=== PATIENT | female | born 1950 ===

== ENCOUNTER 2017-10-03 06:04 | Day surgery (SDC) | payer OTHER, SELFPAY ==
[~2017-10-03] VITALS: Ht 170.2 cm; Wt 81.3 kg
[~2017-10-03 06:04] MED LIST: ASPI81EC PO; CEPH500 PO; HYDACE7.5 PO; MULTIVITS; NITR100CA PO
[2017-10-03] MEDS ORDERED: GLIP10 PO (06:48)
[2017-10-03] MEDS ORDERED: METF500 PO (06:48)
[2017-10-03] MEDS ORDERED: LISI5 PO (06:49)
[2017-10-03] MEDS ORDERED: SITA100T2 PO (06:49)
[2017-10-03] MEDS ORDERED: HYDR1TAB94 (06:50)
== END 2017-10-03 12:00 | disposition home or self-care (01) ==
LOC: ORSCSDS 06:04
PROVIDERS: Orthopaedic Surgery
PROC: 0LS14ZZ Reposition Right Shoulder Tendon, Percutaneous Endoscopic Approach (ICD-10-PCS; principal; 2017-10-03 08:00)
PROC: 0RNJ4ZZ Release Right Shoulder Joint, Percutaneous Endoscopic Approach (ICD-10-PCS; principal; 2017-10-03 08:00)
PROC: 0LQ14ZZ Repair Right Shoulder Tendon, Percutaneous Endoscopic Approach (ICD-10-PCS; principal; 2017-10-03 08:00)
DX: M75.121 Complete rotator cuff tear or rupture of right shoulder, not specified as traumatic (principal); M75.41 Impingement syndrome of right shoulder; M75.21 Bicipital tendinitis, right shoulder; E11.9 Type 2 diabetes mellitus without complications; I10 Essential (primary) hypertension; Z87.891 Personal history of nicotine dependence; Z79.899 Other long term (current) drug therapy
CPT/HCPCS: 82947; C1713; J0171; J0690; J1100; J1885; J2250; J2405; J2710; J3010; J7120

== ENCOUNTER 2019-09-02 12:02 | Emergency (ER) | payer OTHER ==
[~2019-09-02] VITALS: Ht 170.2 cm; Wt 78.9 kg
[~2019-09-02 12:02] MED LIST changes: +GLIP10 PO; +HYDR1TAB94; +LISI5 PO; +METF500 PO; +SITA100T2 PO
[2019-09-02] MEDS ORDERED: Norco 5-325 Ta1 EACH PO (17:29)
== END 2019-09-02 18:00 | disposition home or self-care (01) ==
LOC: ER 12:02
DX: N75.1 Abscess of Bartholin's gland (principal); Z87.891 Personal history of nicotine dependence
CPT/HCPCS: 56420; 99282-25; A9270-GY

== ENCOUNTER 2019-09-05 07:20 | Emergency (ER) | payer OTHER ==
[~2019-09-05] VITALS: Ht 170.2 cm; Wt 78.9 kg
[~2019-09-05 07:20] MED LIST changes: +Norco 5-325 Ta1 EACH PO
== END 2019-09-05 08:26 | disposition home or self-care (01) ==
LOC: ER 07:20
DX: Z48.817 Encounter for surgical aftercare following surgery on the skin and subcutaneous tissue (principal); N76.4 Abscess of vulva; N76.2 Acute vulvitis; F17.219 Nicotine dependence, cigarettes, with unspecified nicotine-induced disorders
CPT/HCPCS: 99282

== ENCOUNTER → 2022-09-14 | Outpatient (CLI) | payer OTHER ==
[~2022-09-14] MED LIST changes: +ASPI81CH PO; +Chantix1 MG PO; +FURO40 PO; +HYDURE500 PO; +INSULANI SC; +Vibramycin100 MG PO
[2022-09-14 11:50] LABS: BASOPHILS ABSOLUTE AUTO 0.06 K/mm3 (0.00-0.23); BASOPHILS PERCENT AUTO 1 % (0-2); EOSINOPHILS ABSOLUTE AUTO 0.06 K/mm3 (0.00-0.68); EOSINOPHILS PERCENT AUTO 1 % (0-6); Hemoglobin 13.4 g/dL (11.5-16.0); IMMATURE GRAN ABSOLUTE AUTO 0.02 K/mm3 (0.00-0.10); IMMATURE GRAN PERCENT AUTO 0 % (0-1); LYMPHOCYTES ABSOLUTE AUTO 1.24 K/mm3 (0.84-5.20); LYMPHOCYTES PERCENT AUTO 17 % (21-46); MONOCYTES ABSOLUTE AUTO 0.46 K/mm3 (0.16-1.47); MONOCYTES PERCENT AUTO 6 % (4-13); Mean Platelet Volume 9.7 fL (9.1-12.4); NEUTROPHILS ABSOLUTE AUTO 5.37 K/mm3 (1.96-9.15); NEUTROPHILS PERCENT AUTO 75 % (41-73); Platelet Count 209 K/mm3 (150-400); White Blood Cell Count 7.21 K/mm3 (4.00-11.30)
[2022-09-14 11:55] LABS: Hematocrit 40.4 % (33.0-51.0); Mean Corpuscular HGB 31.5 pg (26.0-34.0); Mean Corpuscular HGB Conc 33.2 g/dL (31.5-36.5); Mean Corpuscular Volume 95 fL (80-100); Red Blood Cell Count 4.25 M/mm3 (3.80-5.20)
[2022-09-14 12:14] LABS: Percent Saturation 32.1 % (15.0-50.0)
[2022-09-14 12:47] LABS: International Normalized Ratio 1.04; Prothrombin Time Results 10.9 Sec (9.7-11.5)
[2022-09-14 12:49] LABS: Hemoglobin 13.4 g/dL (11.5-16.0); Mean Platelet Volume 10.2 fL (9.1-12.4); Platelet Count 218 K/mm3 (150-400); White Blood Cell Count 7.29 K/mm3 (4.00-11.30)
[2022-09-14 12:52] LABS: Hematocrit 41.1 % (33.0-51.0); Mean Corpuscular HGB 31.2 pg (26.0-34.0); Mean Corpuscular HGB Conc 32.6 g/dL (31.5-36.5); Mean Corpuscular Volume 96 fL (80-100); Red Blood Cell Count 4.29 M/mm3 (3.80-5.20)
[2022-09-14 13:00] LABS: Bun/Creatinine Ratio 26.8 (12.0-20.0); Calcium, Blood 9.1 mg/dL (8.5-10.1); Creatinine, Blood 0.75 mg/dL (0.40-1.00); Potassium, Blood 4.9 mmol/L (3.5-5.5)
[2022-09-14 13:21] LABS: BASOPHILS PERCENT MAN 0 % (0-2); EOSINOPHILS ABSOLUTE MAN 0.07 K/mm3 (0.00-0.68); EOSINOPHILS PERCENT MAN 1 % (0-6); LYMPHOCYTES ABSOLUTE MAN 0.94 K/mm3 (0.84-5.20); LYMPHOCYTES PERCENT MAN 13 % (21-46); MONOCYTES ABSOLUTE MAN 0.21 K/mm3 (0.16-1.47); MONOCYTES PERCENT MAN 3 % (4-13); NEUTROPHILS ABSOLUTE MAN 6.05 K/mm3 (1.96-9.15); SEG NEUTROPHILS PERCENT MAN 83 % (41-73); TOTAL CELLS COUNTED 100
== END | disposition home or self-care (01) ==
LOC: LAB 11:11 → LAB SHORT 11:11
PROVIDERS: Internal Medicine Hematology & Oncology; Physician Assistant
DX: I70.222 Atherosclerosis of native arteries of extremities with rest pain, left leg (principal); D45 Polycythemia vera; E55.9 Vitamin D deficiency, unspecified; I50.9 Heart failure, unspecified
CPT/HCPCS: 36415; 80048; 82306; 82728; 83540; 83550; 85007; 85025; 85027; 85610

== ENCOUNTER 2022-09-19 11:35 | Day surgery (SDC) | payer OTHER ==
[2022-09-19] MEDS ORDERED: AMOCLA875 PO (12:18)
[2022-09-19] MEDS ORDERED: METO25ER (12:36)
[2022-09-19] MEDS ORDERED: ROSU10TA (12:36)
[2022-09-19] MEDS ORDERED: ENTRESTO 24 MG1 EACH (12:38)
--- NOTE | 2022-09-19 17:22 | NUR ---
PT DRESSED, AMB TO BTR W HELP, R GROIN SITE STABLE, IV DC'D INTACT, DC'D BY SHELBI W DRIVING PT HOME
== END 2022-09-19 18:00 | disposition home or self-care (01) ==
LOC: MHTC 11:35
DX: E11.51 Type 2 diabetes mellitus with diabetic peripheral angiopathy without gangrene (principal); I70.222 Atherosclerosis of native arteries of extremities with rest pain, left leg; L97.429 Non-pressure chronic ulcer of left heel and midfoot with unspecified severity; F17.290 Nicotine dependence, other tobacco product, uncomplicated; Z79.899 Other long term (current) drug therapy; Z79.4 Long term (current) use of insulin
CPT/HCPCS: 76937; 82947; 99152; 99153; C1714; C1725; C1760; C1769; C1874; C1876; C1887; C1894; C2623; J1644; J2250; J3010; J7030; J7050; Q9967

== ENCOUNTER 2022-09-26 01:10 | Day surgery (SDC) | payer OTHER ==
[~2022-09-26 01:10] MED LIST changes: +AMOCLA875 PO; +ENTRESTO 24 MG1 EACH; +METO25ER; +ROSU10TA
== END 2022-09-26 22:47 | disposition home or self-care (01) ==
LOC: WOUND 01:10
DX: E11.621 Type 2 diabetes mellitus with foot ulcer (principal); L97.428 Non-pressure chronic ulcer of left heel and midfoot with other specified severity; L97.418 Non-pressure chronic ulcer of right heel and midfoot with other specified severity; L97.528 Non-pressure chronic ulcer of other part of left foot with other specified severity; L89.623 Pressure ulcer of left heel, stage 3; E11.42 Type 2 diabetes mellitus with diabetic polyneuropathy; E11.51 Type 2 diabetes mellitus with diabetic peripheral angiopathy without gangrene; I70.223 Atherosclerosis of native arteries of extremities with rest pain, bilateral legs; I87.2 Venous insufficiency (chronic) (peripheral); I11.0 Hypertensive heart disease with heart failure; I50.9 Heart failure, unspecified; F17.290 Nicotine dependence, other tobacco product, uncomplicated; Z79.4 Long term (current) use of insulin
CPT/HCPCS: G0463

== ENCOUNTER 2022-10-04 00:57 | Day surgery (SDC) | payer OTHER | END 2022-10-04 22:42 | disposition home or self-care (01) | LOC: WOUND 00:57 | DX: E11.621 Type 2 diabetes mellitus with foot ulcer (principal); L97.419 Non-pressure chronic ulcer of right heel and midfoot with unspecified severity; L97.429 Non-pressure chronic ulcer of left heel and midfoot with unspecified severity; E11.42 Type 2 diabetes mellitus with diabetic polyneuropathy; Z79.4 Long term (current) use of insulin; I70.223 Atherosclerosis of native arteries of extremities with rest pain, bilateral legs; E11.51 Type 2 diabetes mellitus with diabetic peripheral angiopathy without gangrene; Z87.891 Personal history of nicotine dependence | CPT/HCPCS: A9270; G0463 ==

== ENCOUNTER 2022-10-12 00:42 | Day surgery (SDC) | payer OTHER | END 2022-10-12 23:00 | disposition home or self-care (01) | LOC: WOUND 00:42 | DX: E11.621 Type 2 diabetes mellitus with foot ulcer (principal); L97.419 Non-pressure chronic ulcer of right heel and midfoot with unspecified severity; L97.422 Non-pressure chronic ulcer of left heel and midfoot with fat layer exposed; E11.42 Type 2 diabetes mellitus with diabetic polyneuropathy; Z79.4 Long term (current) use of insulin; I70.223 Atherosclerosis of native arteries of extremities with rest pain, bilateral legs; E11.51 Type 2 diabetes mellitus with diabetic peripheral angiopathy without gangrene; I87.2 Venous insufficiency (chronic) (peripheral); Z87.891 Personal history of nicotine dependence | CPT/HCPCS: G0463 ==

== ENCOUNTER 2022-10-18 01:47 | Day surgery (SDC) | payer OTHER ==
[~2022-10-18 01:47] MED LIST changes: -ENTRESTO 24 MG1 EACH; +ENTRESTO 24 MG1 EACH PO; -ROSU10TA; +ROSU10TA PO
== END 2022-10-18 22:35 | disposition home or self-care (01) ==
LOC: WOUND 01:47
DX: L89.623 Pressure ulcer of left heel, stage 3 (principal); E11.42 Type 2 diabetes mellitus with diabetic polyneuropathy; E11.621 Type 2 diabetes mellitus with foot ulcer; Z79.4 Long term (current) use of insulin; I70.223 Atherosclerosis of native arteries of extremities with rest pain, bilateral legs; I87.2 Venous insufficiency (chronic) (peripheral); E11.51 Type 2 diabetes mellitus with diabetic peripheral angiopathy without gangrene; Z87.891 Personal history of nicotine dependence
CPT/HCPCS: G0463

== ENCOUNTER 2022-10-19 08:55 | Day surgery (SDC) | payer OTHER ==
[~2022-10-19] VITALS: Ht 170.2 cm; Wt 63.6 kg
[2022-10-19 09:22] LABS: BASOPHILS ABSOLUTE AUTO 0.06 K/mm3 (0.00-0.23); BASOPHILS PERCENT AUTO 1 % (0-2); EOSINOPHILS ABSOLUTE AUTO 0.13 K/mm3 (0.00-0.68); EOSINOPHILS PERCENT AUTO 1 % (0-6); Hematocrit 39.4 % (33.0-51.0); IMMATURE GRAN ABSOLUTE AUTO 0.04 K/mm3 (0.00-0.10); IMMATURE GRAN PERCENT AUTO 0 % (0-1); LYMPHOCYTES ABSOLUTE AUTO 1.79 K/mm3 (0.84-5.20); LYMPHOCYTES PERCENT AUTO 15 % (21-46); MONOCYTES ABSOLUTE AUTO 1.07 K/mm3 (0.16-1.47); MONOCYTES PERCENT AUTO 9 % (4-13); Mean Corpuscular HGB 34.4 pg (26.0-34.0); Mean Corpuscular Volume 104 fL (80-100); NEUTROPHILS ABSOLUTE AUTO 8.91 K/mm3 (1.96-9.15); NEUTROPHILS PERCENT AUTO 74 % (41-73); Platelet Count 292 K/mm3 (150-400); RDW Coefficient Variation 15.7 % (11.7-14.2); RDW Standard Deviation 59.1 fL (35.1-46.3); Red Blood Cell Count 3.78 M/mm3 (3.80-5.20)
[2022-10-19 09:39] LABS: Albumin, Blood 3.2 g/dL (3.4-5.0); Albumin/Globulin Ratio 0.8 (0.8-1.8); Bilirubin, Total 0.7 mg/dL (0.1-1.0); Bun/Creatinine Ratio 21.2 (12.0-20.0); Calcium, Blood 8.8 mg/dL (8.5-10.1); Creatinine, Blood 0.66 mg/dL (0.40-1.00); Globulin, Blood 3.8 g/dL (2.2-4.0); Potassium, Blood 3.8 mmol/L (3.5-5.5)
[2022-10-19 09:40] LABS: International Normalized Ratio 1.05
--- NOTE | 2022-10-19 12:00 | NUR ---
Patient arrived to recovery room drowsy, but easily arousable. L groin site C/D/I, soft/nontender, no evidence of hematoma. R PT access C/D/I. VSS on room air
--- NOTE | 2022-10-19 13:30 | NUR ---
HOB elevated. L groin site C/D/I, soft/nontender. No evidence of hematoma. Pt tolerating PO intake well. VSS on room air
--- NOTE | 2022-10-19 14:00 | NUR ---
Groin site C/D/I, no evidence of hematoma. Patient tolerated PO intake well. Discharge instructions reviewed with patient. No new changes to medications. Patient informed to restart metformin in 2 days. Follow up appointment scheduled. VSS on room air.
--- NOTE | 2022-10-19 15:00 | NUR ---
Patient discahrged at this time. All patient belongings returned to patient. Discharge instructions given to patient. PIV removed without difficuluty, catheter intact. VSS on room air. Groin site C/D/I, no evidence of hematoma. Patient able to ambulate to wheelchair without dificulty.
== END 2022-10-19 15:00 | disposition home or self-care (01) ==
LOC: MHTC 08:55
PROVIDERS: Radiology Diagnostic Radiology
DX: E11.51 Type 2 diabetes mellitus with diabetic peripheral angiopathy without gangrene (principal); Z72.0 Tobacco use; I70.244 Atherosclerosis of native arteries of left leg with ulceration of heel and midfoot; L97.422 Non-pressure chronic ulcer of left heel and midfoot with fat layer exposed
CPT/HCPCS: 37224; 37228; 37232; 75716; 75774; 76937; 80053; 85025; 85610; 99152; 99153; C1725; C1760; C1769; C1887; C1894; J1644; J2250; J3010; J7030; J7040; J7042; J7050; Q9967

== ENCOUNTER 2022-10-25 02:41 | Day surgery (SDC) | payer OTHER | END 2022-10-25 22:46 | disposition home or self-care (01) | LOC: WOUND 02:41 | DX: E11.621 Type 2 diabetes mellitus with foot ulcer (principal); L97.522 Non-pressure chronic ulcer of other part of left foot with fat layer exposed; L97.428 Non-pressure chronic ulcer of left heel and midfoot with other specified severity; E11.42 Type 2 diabetes mellitus with diabetic polyneuropathy; I70.223 Atherosclerosis of native arteries of extremities with rest pain, bilateral legs; E11.51 Type 2 diabetes mellitus with diabetic peripheral angiopathy without gangrene; L89.623 Pressure ulcer of left heel, stage 3; I87.2 Venous insufficiency (chronic) (peripheral); I50.9 Heart failure, unspecified; Z87.891 Personal history of nicotine dependence; Z79.4 Long term (current) use of insulin | CPT/HCPCS: A9270; G0463 ==

== ENCOUNTER 2022-11-10 01:06 | Day surgery (SDC) | payer OTHER | END 2022-11-10 22:36 | disposition home or self-care (01) | LOC: WOUND 01:06 | DX: E11.621 Type 2 diabetes mellitus with foot ulcer (principal); L97.422 Non-pressure chronic ulcer of left heel and midfoot with fat layer exposed; L97.522 Non-pressure chronic ulcer of other part of left foot with fat layer exposed; L89.623 Pressure ulcer of left heel, stage 3; E11.42 Type 2 diabetes mellitus with diabetic polyneuropathy; Z79.4 Long term (current) use of insulin; I70.223 Atherosclerosis of native arteries of extremities with rest pain, bilateral legs; I87.2 Venous insufficiency (chronic) (peripheral); E11.51 Type 2 diabetes mellitus with diabetic peripheral angiopathy without gangrene; Z87.891 Personal history of nicotine dependence | CPT/HCPCS: 99406; A9270 ==

== ENCOUNTER 2022-11-16 02:36 | Day surgery (SDC) | payer OTHER | END 2022-11-16 23:28 | disposition home or self-care (01) | LOC: WOUND 02:36 | DX: L89.623 Pressure ulcer of left heel, stage 3 (principal); E11.621 Type 2 diabetes mellitus with foot ulcer; E11.42 Type 2 diabetes mellitus with diabetic polyneuropathy; E11.51 Type 2 diabetes mellitus with diabetic peripheral angiopathy without gangrene; I70.223 Atherosclerosis of native arteries of extremities with rest pain, bilateral legs; Z79.4 Long term (current) use of insulin; I87.2 Venous insufficiency (chronic) (peripheral); Z87.891 Personal history of nicotine dependence; I50.9 Heart failure, unspecified | CPT/HCPCS: 99406; A9270; G0463 ==

== ENCOUNTER 2022-12-13 07:11 | Inpatient (IN) | payer OTHER ==
[2022-12-13] VITALS (21 sets, daily range): BP systolic 120–180; BP diastolic 65–122
[~2022-12-13] VITALS: Ht 170.2 cm; Wt 65.7 kg
[~2022-12-13 07:11] MED LIST changes: +METO25ER PO
--- NOTE | 2022-12-13 09:15 | NUR ---
PATIENT ARRIVED TO RECOVERY ROOM CONVERSING APPROPRIATELY IN BED. R RADIAL TR BAND FULLY INFLATED. SITE C/D/I SOFT/NONTENDER, NO EVIDENCE OF HEMATOMA. GOOD PLEUTH WAVE. PATIENT DENYING ANY PAIN. VSS ON ROOM AIR.
--- NOTE | 2022-12-13 09:45 | NUR ---
PATIENT SITTING UP IN BED TOLERATING PO INTAKE WELL. R RADIAL SITE WITH TR BAND FULLY INFLATED. SITE C/D/I, SOFT/NONTENDER, NO EVIDENCE OF HEMATOMA. GOOD PLEUTH WAVE. PATIENT DENYING ANY PAIN. VSS ON ROOM AIR. SPOUSE PRESENT AT BEDSIDE.
--- NOTE | 2022-12-13 11:05 | NUR ---
2 CC OF AIR REMOVED FROM R RADIAL TR BAND. SITE C/D/I SOFT/NONTENDER, NO EVIDENCE OF HEMATOMA. GOOD PLEUTH WAVE. PATIENT DENYING ANY PAIN. VSS ON ROOM AIR. PATIENT RESTING COMFORTABLY IN BED.
--- NOTE | 2022-12-13 13:00 | NUR ---
ALL AIR REMOVED FROM R RADIAL TR BAND. SITE C/D/I SOFT/NONTENDER, NO EVIDENCE OF HEMATOMA. VSS ON ROOM AIR.
--- NOTE | 2022-12-13 13:25 | NUR ---
DR JESSICA IN ROOM DISCUSSING PLAN OF CARE.
--- NOTE | 2022-12-13 13:57 | NUR ---
CHEST X RAY PERFORMED
--- NOTE | 2022-12-13 14:00 | NUR ---
R RADIAL TR BAND REMOVED, CLOTH DOT APPLIED. SITE C/D/I SOFT/NONTENDER, NO EVIDENCE OF HEMATOMA. VSS ON ROOM AIR. PATIENT TRANSFERRED TO PCU 16, BEDSIDE REPORT GIVEN TO RN.
--- NOTE | 2022-12-13 18:02 | NUR ---
SHIFT SUMMARY; ADMIT FROM PBX INSPECTOR POST ANGIO. A/A/OX4 INDEPENDANT IN ROOM. RIGHT RADIAL SITE RECOVERED BY PBX INSPECTOR. FOAM DOT DRESSING IN PLACE WITH ARM BOARD. NO SWELLING, HEMATOMA OR REDNESS. RADIAL PULSE PALPABLE. VSS, WILL CONTINUE TO MONITOR AND TREAT UNTIL CHANGE OF SHIFT.
--- NOTE | 2022-12-13 20:58 | NUR ---
ASSUMPTION OF CARE THIS RN ASSUMED CARE OF PATIENT AT 1900. REPORT TAKEN FROM CHRISTIANNE RAMEY. PATIENT IS ALERT AND ORIENTED FULLY AND ABLE TO MAKE NEEDS KNOWN. VITALS STABLE. ON RA. REPORTS OCCASIONAL SOB AT TIMES DESPITE SPO2 >92% ON RA. NO OVERT SIGNS OF RESPIRATORY DISTRESS NOTED. RIGHT RADIAL SITE FULLY RECOVERED. CLOTH DOT DRESSING IN PLACE. ARMBOARD IN PLACE. NO SIGNS OF HEMATOMA, BLEEDING, SWELLING, TENDERNESS, OR DISCOLORATION. PULSES STRONG THROUGHOUT. PATIENT VERBALIZED UNDERSTANDNIG RESTRICTIONS FOR MOVEMENT AND USE OF RIGHT HAND/WRIST. INDEPENDENT WITH ADL'S. BED IN LOWEST POSITION AND CALL LIGHT WITHIN REACH.
[2022-12-14 03:25] VITALS: BP 140/86
--- NOTE | 2022-12-14 04:31 | NUR ---
SHIFT SUMMARY NO ACUTE CHANGES OVERNIGHT. PATIENT SLEPT SITTING UP IN BED DURING THE SHIFT WITH COMPLAINTS OF SOB AT TIMES, DESPITE SPO2 >94% ON RA. PATIENT OFFERED A RECLINER TO SLEEP IN, SHE DECLINED NEED. BP STABLE. SR ON MONITOR WITH BBB, HR 60-70'S. AFEBRILE. INDEPENDENT WITH ADL'S AND REPOSITIONING. BED IN LOWEST POSTIION AND CALL LIGHT WITHIN REACH. THIS RN WILL CONTINUE TO MONITOR UNTIL SHIFT CHANGE AT 0700.
[2022-12-14 05:37] LABS: Bun/Creatinine Ratio 25.1 (12.0-20.0); Calcium, Blood 8.6 mg/dL (8.5-10.1); Potassium, Blood 4.4 mmol/L (3.5-5.5)
[2022-12-14 08:45] VITALS: BP 143/87
[2022-12-14 11:50] VITALS: BP 127/62
[2022-12-14 16:14] VITALS: BP 122/68
--- NOTE | 2022-12-14 17:24 | NUR ---
ASSUMED CARE OF PT AT 0700 THIS AM. PT CONTINUES TO HAVE SOB WITH EXERTION. VSS. MEDICATIONS FURTHER ADJUSTED BY DR JESSICA THIS EVENING. SEE DOCUMENTED ASSESSMENT. NO ACUTE CHANGES T/O THE SHIFT. PT ABLE TO USE CALL LIGHT FOR NEEDS, CALL LIGHT INR EACH. WILL CONTINUE TO MONITOR AND GIVE REPORT TO NOC SHIFT RN.
[2022-12-14 19:37] VITALS: BP 115/55
[2022-12-14 23:44] VITALS: BP 119/61
[2022-12-15 04:20] VITALS: BP 113/56
[2022-12-15 04:34] LABS: Anion Gap 5 mmol/L (6-16); Blood Urea Nitrogen 29 mg/dL (8-24); Bun/Creatinine Ratio 25.7 (12.0-20.0); CO2, Blood 31 mmol/L (21-32); Calcium, Blood 8.5 mg/dL (8.5-10.1); Chloride, Blood 106 mmol/L (98-108); Cholesterol 185 mg/dL (50-200); Creatinine, Blood 1.13 mg/dL (0.40-1.00); Glomerular Filtration Rate 51 (60-); Glucose, Blood 88 mg/dL (70-99); HDL Cholesterol 37 mg/dL (>39); LDL/HDL RATIO 3.6; Low Density Lipoprotein Chol 132 mg/dL (0-110); Potassium, Blood 3.8 mmol/L (3.5-5.5); Sodium, Blood 142 mmol/L (136-145); Triglycerides 82 mg/dL (30-160); Very Low Density Lipoprot Chol 16 mg/dL (6-32)
--- NOTE | 2022-12-15 05:16 | NUR ---
SHIFT SUMMARY NO ACUTE CHANGES OVERNIGHT. BP STABLE. SB/SR WITH BBB NOTED WITH HR 50-60'S. DENIES CHEST PAIN/PRESSURE. ENDORSES SOB AND ORTHPONEA AT TIMES. PATIENT PLACED ON 2L VIA NC TO MAINTAIN SPO2 >92%. TITRATING AND REMOVING O2 NEEDED. AFEBRILE. PATIENT INDEPENDENT WITH ADL'S. ALERT AND ORIENTED FULLY AND ABLE TO MAKE NEEDS KNOWN. EKG DONE PER ORDER AT 0500 12/15. SEE FRONT OF CHART. BED IN LOWEST POSITION AND CALL LIGHT WITHIN REACH. THIS RN WILL CONTINUE TO MONITOR UNTIL SHIFT CHANGE AT 0700.
[2022-12-15 08:05] VITALS: BP 124/64
[2022-12-15 12:14] VITALS: BP 129/73
[2022-12-15 16:03] VITALS: BP 120/66
--- NOTE | 2022-12-15 18:54 | NUR ---
SHIFT NOTE. PT MET W DR JESSICA AND IT WAS DETERMINED PT WILL ATTEMPT TO TX TO ANOTHER FACILITY FOR FURTHER CARDIOLOGY CONSULTATION. PT IS A/O ON 2 L O2 N/C, HAS REMAINED WITH GOOD MOOD AND COOPERATIVE T/O SHIFT. CALL LIGHT WITHIN REACH, WILL CONT TO MONITOR AND GIVE BEDSIDE REPORT TO NOC RN.
[2022-12-15 19:22] VITALS: BP 116/61
[2022-12-15 23:38] VITALS: BP 132/69
[2022-12-16 03:59] VITALS: BP 136/69
--- NOTE | 2022-12-16 06:21 | NUR ---
SHIFT SUMMARY NO ACUTE CHANGES OVERNIGHT. PATIENT DENIES CHEST PAIN/PRESSURE. ENSORSES DYSPNEA WITH EXERTION AND OCCASIONAL ORTHOPNEA. ON 2L VIA NC WHILE SLEEPING AND LYING FLAT. BP STABLE. SB/SR WITH PVC'S, HR 50-60'S. AFEBRILE. SPO2 >92% WHILE AWAKE AND ON RA AND WHILE LYING FLAT WITH 2L OF O2. ALERT AND ORIENTED FULLY. ABLE TO MAKE NEEDS KNOWN. INDEPENDENT WITH ADL'S. BED IN LOWEST POSITION AND CALL LIGHT WITHIN REACH. THIS RN WILL CONTINUE TO MONITOR UNTIL SHIFT CHANGE AT 0700.
[2022-12-16 08:33] VITALS: BP 129/59
[2022-12-16 11:36] VITALS: BP 127/72
[2022-12-16 15:47] VITALS: BP 149/74
--- NOTE | 2022-12-16 19:00 | NUR ---
End of shift note. Pt had a good day, waiting for possible transfer to [facility] tomorrow 12/17/22. Vitals stable all shift. Some complaints of SOB, using supplemental O2 for comfort. Pt is independent in the room. Pt is able to make needs known, call light is within reach.
[2022-12-16 21:01] VITALS: BP 129/64
[2022-12-17 00:16] VITALS: BP 140/73
[2022-12-17 03:39] VITALS: BP 127/60
[2022-12-17 04:04] LABS: BASOPHILS PERCENT AUTO 1 % (0-2); EOSINOPHILS ABSOLUTE AUTO 0.24 K/mm3 (0.00-0.68); EOSINOPHILS PERCENT AUTO 2 % (0-6); Hematocrit 38.3 % (33.0-51.0); Hemoglobin 11.9 g/dL (11.5-16.0); IMMATURE GRAN ABSOLUTE AUTO 0.09 K/mm3 (0.00-0.10); IMMATURE GRAN PERCENT AUTO 1 % (0-1); LYMPHOCYTES ABSOLUTE AUTO 2.68 K/mm3 (0.84-5.20); LYMPHOCYTES PERCENT AUTO 19 % (21-46); MONOCYTES ABSOLUTE AUTO 1.12 K/mm3 (0.16-1.47); MONOCYTES PERCENT AUTO 8 % (4-13); Mean Corpuscular HGB Conc 31.1 g/dL (31.5-36.5); Mean Corpuscular Volume 97 fL (80-100); Mean Platelet Volume 10.7 fL (9.1-12.4); NEUTROPHILS ABSOLUTE AUTO 10.18 K/mm3 (1.96-9.15); NEUTROPHILS PERCENT AUTO 71 % (41-73); Platelet Count 443 K/mm3 (150-400); RDW Coefficient Variation 14.1 % (11.7-14.2); RDW Standard Deviation 49.8 fL (35.1-46.3); Red Blood Cell Count 3.97 M/mm3 (3.80-5.20); White Blood Cell Count 14.41 K/mm3 (4.00-11.30)
[2022-12-17 04:24] LABS: Bun/Creatinine Ratio 25.8 (12.0-20.0); Calcium, Blood 8.7 mg/dL (8.5-10.1); Creatinine, Blood 1.24 mg/dL (0.40-1.00); Potassium, Blood 3.5 mmol/L (3.5-5.5)
--- NOTE | 2022-12-17 06:52 | NUR ---
SHIFT SUMMARY: A&OX4. NO COMPLAINTS OF SOB OR CHEST PAIN THROUGHOUT SHIFT. PT INDEPENDENT IN ROOM WITH STEADY GAIT AND POSTURE ERECT. REPORTS VOIDING WITHTOUT DIFFICULTY. NO ACUTE CHANGES NOTED DURING THIS SHIFT. CALL LIGHT IN REACH.
[2022-12-17 07:42] VITALS: BP 126/68
[2022-12-17 11:21] VITALS: BP 140/79
[2022-12-17 12:05] VITALS: BP 140/79
--- NOTE | 2022-12-17 13:01 | NUR ---
PT LEFT WITH EMS, ALL BELONGINGS WITH PT. CALLED REPORT TO GLADYS RAMEY AT [facility].
== END 2022-12-17 12:47 | disposition short-term general hospital (02) | DRG 287 ==
LOC: MHTC 07:11 → PCU 07:11 → MHTC 07:12 → PCU 14:10 → MHTC 12-14 20:00 → PCU 12-15 09:52
PROVIDERS: Internal Medicine Cardiovascular Disease; ADMIT Internal Medicine
PROC: 4A023N7 Measurement of Cardiac Sampling and Pressure, Left Heart, Percutaneous Approach (ICD-10-PCS; principal; 2022-12-13)
PROC: B24BZZ3 Ultrasonography of Heart with Aorta, Intravascular (ICD-10-PCS; 2022-12-13)
PROC: B2111ZZ Fluoroscopy of Multiple Coronary Arteries using Low Osmolar Contrast (ICD-10-PCS; 2022-12-13)
DX: I50.43 Acute on chronic combined systolic (congestive) and diastolic (congestive) heart failure (principal); I25.5 Ischemic cardiomyopathy; E78.5 Hyperlipidemia, unspecified; I25.10 Atherosclerotic heart disease of native coronary artery without angina pectoris; M19.90 Unspecified osteoarthritis, unspecified site; E66.9 Obesity, unspecified; Z96.619 Presence of unspecified artificial shoulder joint; D75.1 Secondary polycythemia; F41.9 Anxiety disorder, unspecified; E11.51 Type 2 diabetes mellitus with diabetic peripheral angiopathy without gangrene; Z68.23 Body mass index [BMI] 23.0-23.9, adult; Z95.5 Presence of coronary angioplasty implant and graft; Z90.710 Acquired absence of both cervix and uterus; Z87.891 Personal history of nicotine dependence; Z98.890 Other specified postprocedural states; Z88.8 Allergy status to other drugs, medicaments and biological substances; Z79.4 Long term (current) use of insulin; Z79.899 Other long term (current) drug therapy
CPT/HCPCS: 36415; 71045; 76937; 80048; 80061; 82947; 83036; 84484; 85025; 93005; 93010; 93458; 94760; 99152; 99153; A9270; C1769; C1887; C1894; C8929; J1644; J1815; J2250; J3010; J7030; J7050; Q9957; Q9967

== ENCOUNTER 2023-03-09 19:08 | Emergency (ER) | payer OTHER ==
[~2023-03-09] VITALS: Ht 170.2 cm; Wt 68.0 kg
[2023-03-09 19:45] LABS: BASOPHILS ABSOLUTE AUTO 0.09 K/mm3 (0.00-0.23); BASOPHILS PERCENT AUTO 1 % (0-2); EOSINOPHILS ABSOLUTE AUTO 0.14 K/mm3 (0.00-0.68); EOSINOPHILS PERCENT AUTO 1 % (0-6); Hematocrit 53.2 % (33.0-51.0); Hemoglobin 16.8 g/dL (11.5-16.0); IMMATURE GRAN ABSOLUTE AUTO 0.07 K/mm3 (0.00-0.10); IMMATURE GRAN PERCENT AUTO 0 % (0-1); LYMPHOCYTES ABSOLUTE AUTO 1.73 K/mm3 (0.84-5.20); LYMPHOCYTES PERCENT AUTO 10 % (21-46); MONOCYTES ABSOLUTE AUTO 1.29 K/mm3 (0.16-1.47); MONOCYTES PERCENT AUTO 8 % (4-13); Mean Corpuscular HGB 25.9 pg (26.0-34.0); Mean Corpuscular HGB Conc 31.6 g/dL (31.5-36.5); Mean Corpuscular Volume 82 fL (80-100); Mean Platelet Volume 11.6 fL (9.1-12.4); NEUTROPHILS ABSOLUTE AUTO 13.29 K/mm3 (1.96-9.15); NEUTROPHILS PERCENT AUTO 80 % (41-73); Platelet Count 323 K/mm3 (150-400); RDW Coefficient Variation 17.6 % (11.7-14.2); RDW Standard Deviation 49.3 fL (35.1-46.3); Red Blood Cell Count 6.49 M/mm3 (3.80-5.20); White Blood Cell Count 16.61 K/mm3 (4.00-11.30)
[2023-03-09 19:54] LABS: Albumin/Globulin Ratio 0.7 (0.8-1.8); Bilirubin, Total 0.7 mg/dL (0.1-1.0); Creatinine, Blood 1.37 mg/dL (0.40-1.00); Globulin, Blood 4.5 g/dL (2.2-4.0); Potassium, Blood 5.6 mmol/L (3.5-5.5); Total Protein, Blood 7.5 g/dL (6.4-8.2)
[2023-03-09 20:30] LABS: Source, Urine Straight Cath
[2023-03-09 20:38] LABS: Appearance, Urine Hazy (Clear); Bilirubin, Urine Neg (Neg); Blood, Urine Neg (Neg); Glucose Qualitative, Urine 4+ (Neg); Ketones, Urine Neg (Neg); Leukocyte Esterase, Urine 3+ (Neg); Nitrite, Urine Neg (Neg); Protein, Urine Neg (Neg); Urobilinogen, Urine NORM (Normal)
[2023-03-09 20:43] LABS: Color, Urine Pale Yellow (P-Yellow)
[2023-03-09 20:46] LABS: Bacteria Many /hpf; Renal Epithelial Rare /hpf (0-Rare); Squamous Epithelial Cells Few /hpf (Few); White Blood Cells, Urine 25-50 /hpf (0-5); Yeast/Fungi Urine Rare /hpf
[2023-03-09] MEDS ORDERED: CEFP200 PO (21:14)
[2023-03-09 21:30] VITALS: BP 152/75
== END 2023-03-09 21:42 | disposition home or self-care (01) ==
LOC: ER 19:08
PROVIDERS: Emergency Medicine; Student in an Organized Health Care Education/Training Program
DX: S80.02XA Contusion of left knee, initial encounter (principal); N39.0 Urinary tract infection, site not specified; R53.1 Weakness; W19.XXXA Unspecified fall, initial encounter; Z88.8 Allergy status to other drugs, medicaments and biological substances; Z79.4 Long term (current) use of insulin; Z79.899 Other long term (current) drug therapy; E11.9 Type 2 diabetes mellitus without complications; Z87.891 Personal history of nicotine dependence
CPT/HCPCS: 51701; 70450; 73562-LT; 80053; 81001; 85025; 87077; 87086; 87186; 93005; 93010; 96365; 99285-25; A9270; J0696

== ENCOUNTER 2023-05-12 10:15 | Inpatient (IN) | payer OTHER ==
[~2023-05-12] VITALS: Ht 170.2 cm; Wt 64.4 kg
[~2023-05-12 10:15] MED LIST changes: +CEFP200 PO; +FURO20 PO; -FURO40 PO
[2023-05-12 11:14] LABS: BASOPHILS ABSOLUTE AUTO 0.12 K/mm3 (0.00-0.23); BASOPHILS PERCENT AUTO 1 % (0-2); EOSINOPHILS ABSOLUTE AUTO 0.18 K/mm3 (0.00-0.68); EOSINOPHILS PERCENT AUTO 1 % (0-6); Hemoglobin 18.6 g/dL (11.5-16.0); IMMATURE GRAN ABSOLUTE AUTO 0.06 K/mm3 (0.00-0.10); IMMATURE GRAN PERCENT AUTO 0 % (0-1); LYMPHOCYTES ABSOLUTE AUTO 1.97 K/mm3 (0.84-5.20); LYMPHOCYTES PERCENT AUTO 14 % (21-46); MONOCYTES ABSOLUTE AUTO 0.84 K/mm3 (0.16-1.47); MONOCYTES PERCENT AUTO 6 % (4-13); Mean Corpuscular HGB 25.1 pg (26.0-34.0); Mean Corpuscular HGB Conc 30.2 g/dL (31.5-36.5); Mean Corpuscular Volume 83 fL (80-100); NEUTROPHILS ABSOLUTE AUTO 11.05 K/mm3 (1.96-9.15); NEUTROPHILS PERCENT AUTO 78 % (41-73); Platelet Count 216 K/mm3 (150-400); RDW Coefficient Variation 20.5 % (11.7-14.2); RDW Standard Deviation 55.9 fL (35.1-46.3); Red Blood Cell Count 7.42 M/mm3 (3.80-5.20); White Blood Cell Count 14.22 K/mm3 (4.00-11.30)
[2023-05-12 11:16] LABS: Hematocrit 61.5 % (33.0-51.0)
[2023-05-12 11:38] LABS: Albumin, Blood 3.5 g/dL (3.4-5.0); Albumin/Globulin Ratio 0.7 (0.8-1.8); Bilirubin, Total 0.5 mg/dL (0.1-1.0); Bun/Creatinine Ratio 27.9 (12.0-20.0); Calcium, Blood 9.2 mg/dL (8.5-10.1); Creatinine, Blood 2.58 mg/dL (0.40-1.00); Globulin, Blood 4.7 g/dL (2.2-4.0); Magnesium, Blood 2.8 mg/dL (1.6-2.4); Potassium, Blood 4.6 mmol/L (3.5-5.5); Total Protein, Blood 8.2 g/dL (6.4-8.2)
[2023-05-12 15:08] LABS: Source, Urine Clean Catch
[2023-05-12 15:52] LABS: Bilirubin, Urine Neg (Neg); Blood, Urine 3+ (Neg); Glucose Qualitative, Urine 4+ (Neg); Ketones, Urine Neg (Neg); Leukocyte Esterase, Urine 3+ (Neg); Nitrite, Urine Neg (Neg); Protein, Urine 3+ (Neg); Urobilinogen, Urine NORM (Normal)
[2023-05-12 16:44] LABS: Appearance, Urine Turbid (Clear); Color, Urine Yellow (P-Yellow)
[2023-05-12 16:45] LABS: Bacteria Many /hpf; Mucus Light (0-Heavy); Red Blood Cells, Urine 0-2 /hpf (0-2); Squamous Epithelial Cells Few /hpf (Few); White Blood Cells, Urine TNTC /hpf (0-5)
[2023-05-12 18:08] VITALS: BP 154/80
[2023-05-12 19:38] VITALS: BP 168/73
--- NOTE | 2023-05-12 19:56 | NUR ---
ADMISSION AND SHIFT SUMMARY PATIENT ADMITTED FROM THE ED AT 1800. PATIENT IRRITABLE OF ADMISSION. FAMILY AT BEDSIDE. SON REPORTED OUTSIDE THE ROOM THAT HE FEELS THAT SHE MAY HAVE SOME DEMENTIA. PATIENT HAS NOT SHOWERED FOR 2 MONTHS AND IS RESISTANT WITH PERSONAL CARE. PATIENT UNABLE TO GIVE MEDICATION HX. FAMILY TO RETRIEVE MEDICATIONS FOR REVIEW. US DONE WHILE ADMISSION PROCESS COMPLETED. PATIENT COMPLAINING OF L AC IV PAINFUL WITH ANY MOVEMENT.
[2023-05-12] MEDS ORDERED: SPIRONOLACTONE25 MG PO (21:13)
[2023-05-12] MEDS ORDERED: ROSUVASTATIN CA40 MG PO (21:14)
[2023-05-12] MEDS ORDERED: JARDIANCE25 MG PO (21:14)
[2023-05-12] MEDS ORDERED: PLAVIX75 MG PO (21:15)
[2023-05-12] MEDS ORDERED: LISI5 PO (21:16)
[2023-05-12] MEDS ORDERED: SEMGLEE (Y100 UNIT/2 SC (21:16)
[2023-05-12] MEDS ORDERED: CARVEDILOL6.25 MG PO (21:19)
[2023-05-13 03:34] VITALS: BP 126/64
--- NOTE | 2023-05-13 04:22 | NUR ---
SHIFT SUMMARY NOC PT A/O X 4. PLEASANT AND COOPERATIVE WITH CARE. PT ON TELE RUNNING SINUS RHYTHM @ 65 BPM. NS INFUSING @ 100 ML/HR. PT INDEPENDENT IN ROOM/CONTINENT. PT EVENING CBG WAS 285 AND NO HS COVERAGE SHORT ACTING INDICATED. 10 UNITS LONG ACTING INSULING GIVEN. ACCORDING TO PT FAMILY, PT HAS NOT BATHED IN A FEW WEEKS, PT WAS ASKED IF THEY WOULD LIKE TO SHOWER OR IF THEY NEEDED ASSISTENCE, AND PT REFUSED. PT ALSO REPORTED THAT THEIR PROVIDER AT [facility] TOLD HER NOT TO TAKE HER COREG ANYMORE, MORE CLARIFICATION IS NEEDED TO ADDRESS THIS DURING DAY. PT IS CURRENTLY RESTING WITH BED IN LOWEST POSITION, AND CALL LIGHT WITHIN REACH.
[2023-05-13 05:08] LABS: Bun/Creatinine Ratio 26.5 (12.0-20.0); Calcium, Blood 8.5 mg/dL (8.5-10.1); Creatinine, Blood 2.49 mg/dL (0.40-1.00); Potassium, Blood 4.6 mmol/L (3.5-5.5); Thyroid Stimulating Hormone 0.456 uIU/mL (0.360-4.800); Uric Acid, Blood 7.6 mg/dL (2.6-6.0)
[2023-05-13 07:47] VITALS: BP 127/62
[2023-05-13 15:08] VITALS: BP 165/75
--- NOTE | 2023-05-13 16:45 | NUR ---
[facility] FORMED SIGNED BY PATIENT, FAXED TO [facility], AND COPY PLACED IN PT CHART. ORIGINAL GIVEN BACK TO PATIENT.
[2023-05-13 16:59] VITALS: BP 179/73
--- NOTE | 2023-05-13 19:09 | NUR ---
SHIFT SUMMARY: HYPERTENSIVE THIS AFTERNOON, 165/75, HAD JUST GIVEN 1400 DOSE OF HYDRALAZINE. RE-CHECKED BP AT 1700, WAS 179/78; GAVE PRN HYDRALAZINE. PT ASYMPTOMATIC. NO EVENTS ON TELEMETRY, SR BBB 1ST DEGREE HB WITH RATE 50-70'S. CBG AT 1630 WAS 156; REFUSED SS INSULIN FOR FEAR OF HYPOGLYCEMIA WHILE ASLEEP. NS INFUSING AT 150 ML/HR. CONFUSED AT TIMES.
[2023-05-13 19:30] VITALS: BP 175/73
--- NOTE | 2023-05-13 21:36 | NUR ---
PT BLADDER SCANNED POST VOID 496 ML. PT REFUSED STRAIGHT CATHETERIZATION AT THIS TIME. SUPERINTENDENT AUTOMOTIVE NOTIFIED.
--- NOTE | 2023-05-13 21:38 | NUR ---
PT BLADDER SCANNED POST VOID 678 ML RESIDUAL. PT AGAIN REFUSING STRAIGHT CATHETERIZATION. LEAD RADIOLOGIC TECHNOLOGIST NOTIFIED.
[2023-05-14 01:52] VITALS: BP 155/77
--- NOTE | 2023-05-14 02:52 | NUR ---
PT BLADDER SCANNED POST VOID WIT RESIDUAL 657 ML. PT STILL REFUSING STRAIGHT CATHETERIZATION. CHARGE NURSE NOTIFIED.
--- NOTE | 2023-05-14 04:46 | NUR ---
SHIFT SUMMARY NOC PT A/O X 2-3. PLEASANT AND COOPERATIVE WITH CARE. PT BLADDER SCANNED POST VOID WITH 496 ML/ 678 ML, BUT PT IS REFUSING STRAIGHT CATHETERIZATION, DUE TO PAST PAINFUL EXPERIENCE WHILE IN HOSPITAL. CHARGE NURSE NOTIFIED OF PT REFUSALS. PT HAS NS @ 150 ML/HR INFUSING TO IMPROVE KIDNEY FUNCTION. PT ON TELE RUNNING NSR @ 71 BPM. HS CBG 157 REQUIRING 1 UNIT R INSULIN, 15 UNITS LONG ACTING SCHEDULED. PT BP ELEVATED AND SCHEDULED HYDRALAZINE GIVEN WHICH DECREASED BP. PT IS CURRENTLY RESTING WITH BED IN LOWEST POSITION, AND CALL LIGHT WITHIN REACH.
[2023-05-14 04:59] LABS: BASOPHILS ABSOLUTE AUTO 0.11 K/mm3 (0.00-0.23); BASOPHILS PERCENT AUTO 1 % (0-2); EOSINOPHILS ABSOLUTE AUTO 0.18 K/mm3 (0.00-0.68); EOSINOPHILS PERCENT AUTO 1 % (0-6); Hemoglobin 17.5 g/dL (11.5-16.0); IMMATURE GRAN ABSOLUTE AUTO 0.05 K/mm3 (0.00-0.10); IMMATURE GRAN PERCENT AUTO 0 % (0-1); LYMPHOCYTES ABSOLUTE AUTO 1.42 K/mm3 (0.84-5.20); LYMPHOCYTES PERCENT AUTO 10 % (21-46); MONOCYTES ABSOLUTE AUTO 0.74 K/mm3 (0.16-1.47); MONOCYTES PERCENT AUTO 5 % (4-13); Mean Corpuscular HGB 25.2 pg (26.0-34.0); Mean Corpuscular HGB Conc 30.5 g/dL (31.5-36.5); Mean Corpuscular Volume 83 fL (80-100); NEUTROPHILS ABSOLUTE AUTO 12.17 K/mm3 (1.96-9.15); NEUTROPHILS PERCENT AUTO 83 % (41-73); Platelet Count 205 K/mm3 (150-400); RDW Coefficient Variation 20.2 % (11.7-14.2); RDW Standard Deviation 56.4 fL (35.1-46.3); Red Blood Cell Count 6.94 M/mm3 (3.80-5.20); White Blood Cell Count 14.67 K/mm3 (4.00-11.30)
[2023-05-14 05:00] LABS: Hematocrit 57.3 % (33.0-51.0); Mean Platelet Volume 10.8 fL (9.1-12.4)
[2023-05-14 05:55] LABS: Bun/Creatinine Ratio 25.1 (12.0-20.0); Calcium, Blood 8.8 mg/dL (8.5-10.1); Creatinine, Blood 1.99 mg/dL (0.40-1.00); Potassium, Blood 4.5 mmol/L (3.5-5.5)
[2023-05-14 07:38] VITALS: BP 152/75
[2023-05-14 15:19] VITALS: BP 161/75
--- NOTE | 2023-05-14 18:42 | NUR ---
AT 1630 BLADDER SCAN SHOWED 446 ML POST VOID RESIDUAL. EDUATED PATIENT ABOUT PROCEDURE FOR STRAIGHT CATH, USE OF LIDOCAINE TO HELP WITH PAIN, AND POSSIBLE CAUSES OF URINARY RETENTION; SHE AGREED TO PROCEED WITH ONLY FEMALE STAFF PRESENT. CLEANED VULVA WITH CLEANSING WIPES, THEN BETADINE. PREPARED STERILE FIELD, APPLIED LIDOCAINE TOPICALLY TO URETHRA AND CATHETER. VISUALIZED URETHRAL OPENING AND ATTEMPTED TO INTRODUCE 14 FR CATHETER BUT ENCOUNTERED RESISTANCE JUST INSIDE THE OPENING, UNABLE TO ADVANCE. PT UNABLE TO TOLERATE THIS PROCEDURE FURTHER. MAY NEED FURTHER EVALUATION BY UROLOGIST?
--- NOTE | 2023-05-14 18:49 | NUR ---
SHIFT SUMMARY: NO ACUTE EVENTS. NO EVENTS ON TELEMETRY, SR 60-70'S, BBB, 1ST DEGREE HB. DENIED PAIN. PT HAD IVF INFUSING AT 150 ML/HR; THIS AFTERNOON SHE STATED SHE DIDN'T FEEL WELL AND WAS NOTED TO BE SLIGHTLY DYSPNEIC ON EXERTION. LUNGS SOUNDS WERE CLEAR, BUT PT STATED THAT SHE THOUGHT SHE "WAS GETTING TOO MUCH WATER." AFTER SPEAKING TO DR. SORIANO, IVF RATE DECREASED TO 50 ML/HR. BLADDER SCAN THIS EVENING WAS > 400 ML; SEE NOTE ABOUT STRAIGHT CATH ATTEMPT. APPETITE GOOD. UP INDEPENDENTLY IN ROOM.
[2023-05-14 20:04] VITALS: BP 181/79
[2023-05-14 21:58] VITALS: BP 194/82
[2023-05-14 23:07] VITALS: BP 168/77
[2023-05-15 00:36] VITALS: BP 175/89
[2023-05-15 02:07] VITALS: BP 130/65
--- NOTE | 2023-05-15 05:31 | NUR ---
SHIFT SUMMARY NOC PT A/O X 3. PLEASANT AND COOPERATIVE WITH CARE. PT STILL HAVING ELEVATED BP EVEN AFTER RECEIVING BEDTIME HYDRALAZINE. HOSPITALIST NOTIFIED AND NEW ORDER FOR AMLODAPINE 5 MG ADMINSTERED WHICH LOWERED BP BY 30 SYSTOLIC. PT HAS ORDERS FOR BLADDER SCAN Q8H POST VOID. DAY RN WAS UNABLE TO ADVANCE STRAIGHT CATH DUE TO POSSIBLE OBSTRUCTION. UROLOGY CONSULT PROBABLY NEEDED TO DETERMINE CAUSE OF RESISTENCE. PT HAS NS INFUSING @ 50 ML/HR TO IMPROVE KIDNEY FUNCTION. PT ON TELE RUNNING SINUS RHYTHM 1DHB @ 62 BPM. PT IS CURRENTLY RESTING WITH BED IN LOWEST POSITION, AND CALL LIGHT WITHIN REACH.
[2023-05-15 06:09] LABS: BASOPHILS ABSOLUTE AUTO 0.11 K/mm3 (0.00-0.23); BASOPHILS PERCENT AUTO 1 % (0-2); EOSINOPHILS ABSOLUTE AUTO 0.19 K/mm3 (0.00-0.68); EOSINOPHILS PERCENT AUTO 2 % (0-6); Hemoglobin 16.8 g/dL (11.5-16.0); IMMATURE GRAN ABSOLUTE AUTO 0.05 K/mm3 (0.00-0.10); IMMATURE GRAN PERCENT AUTO 0 % (0-1); LYMPHOCYTES ABSOLUTE AUTO 1.85 K/mm3 (0.84-5.20); LYMPHOCYTES PERCENT AUTO 14 % (21-46); MONOCYTES ABSOLUTE AUTO 0.74 K/mm3 (0.16-1.47); MONOCYTES PERCENT AUTO 6 % (4-13); Mean Corpuscular HGB 25.1 pg (26.0-34.0); Mean Corpuscular HGB Conc 30.4 g/dL (31.5-36.5); Mean Corpuscular Volume 83 fL (80-100); NEUTROPHILS ABSOLUTE AUTO 10.09 K/mm3 (1.96-9.15); NEUTROPHILS PERCENT AUTO 77 % (41-73); Platelet Count 195 K/mm3 (150-400); RDW Coefficient Variation 20.4 % (11.7-14.2); RDW Standard Deviation 56.6 fL (35.1-46.3); Red Blood Cell Count 6.69 M/mm3 (3.80-5.20); White Blood Cell Count 13.03 K/mm3 (4.00-11.30)
[2023-05-15 06:12] LABS: Hematocrit 55.3 % (33.0-51.0)
[2023-05-15 06:27] LABS: Bun/Creatinine Ratio 21.7 (12.0-20.0); Calcium, Blood 8.6 mg/dL (8.5-10.1); Creatinine, Blood 1.66 mg/dL (0.40-1.00); Potassium, Blood 4.2 mmol/L (3.5-5.5)
[2023-05-15 07:49] VITALS: BP 128/68
[2023-05-15 16:03] VITALS: BP 142/77
--- NOTE | 2023-05-15 17:21 | NUR ---
PT AOX4 AND ABLE TO MAKE NEEDS KNOWN. PT STARTED AM VERY AGITATED AND UPSET. MULTIPLE CARE STAFF ATTEMPTED TO HELP HER AND FIX HER FRUSTRATION. EXTRA FOOD REQUESTED PT WAS UPSET THAT NOT ENOUGH FOOD HAD BEEN ORDERED. PT WAS TALKED WITH BY THIS FARMWORKER MACHINE WHEN SHE TOLD STUDENT NURSE HOW UPSET SHE WAS AND HOW SHE THOUGHT SHE WAS NOT BEING TREATED WELL. PT DID SEEM TO SETTLE DOWN AND HAS BEEN GOOD TO WORK WITH SINCE. PT CONTINUES TO RETAIN URING AND WAS AT 596MLS WHEN BLADDER SCANNED. PT HAS BEEN INSTRUCTED TO REALLY TRY HARD TO EMPTY BLADDER WHEN SHE NEEDS TO VOID AGAIN AND ANOTHER BLADDER SCAN WILL BE PREFORMED. PT DOES NOT WANT ANOTHER ATTEMPT AT A SIEGEL BEING PLACED. PT IS INDEPENDENT IN ROOM AND HAS CALL LIGHT WITHIN REACH WILL CONTINUE TO MONITOR.
[2023-05-15 19:38] VITALS: BP 131/67
[2023-05-16 04:29] LABS: Base Excess Venous -6.7 mmol/L; PCO2 Venous 33.1 mmHg (38-42); pH Blood Venous 7.36 (7.34-7.37)
[2023-05-16 05:37] LABS: Bun/Creatinine Ratio 20.7 (12.0-20.0); Calcium, Blood 8.5 mg/dL (8.5-10.1); Creatinine, Blood 1.5 mg/dL (0.40-1.00); Free Thyroxine 1.01 ng/dL (0.70-1.60); Potassium, Blood 4.5 mmol/L (3.5-5.5)
[2023-05-16 06:01] VITALS: BP 146/68
--- NOTE | 2023-05-16 06:12 | NUR ---
SHIFT SUMMARY PT A&O X4, COOPERATIVE WITH CARE. TELEMETRY: SB @ 54. DENIES ANY CHEST PAIN, DIZZINESS, OR SOB. HS BS 297. PT IS INDEPENDENT TO RESTROOM, CONTINENT. ENCOURAGED FLUID. PT HAD 1 UNMEASURED VOID PLUS 380 ML. WILL CONTINUE TO MONITOR. BED KEPT IN LOWEST POSITION AND PT CALLS TO MAKE NEEDS KNOWN.
[2023-05-16 07:42] VITALS: BP 134/69
[2023-05-16] MEDS ORDERED: AMLO5 PO (12:12)
--- NOTE | 2023-05-16 13:19 | NUR ---
PT DISCHARED AT 1300 ALL PAPERWORK REVIEWED AND EDUCATIONAL MATERIAL SENT WITH PT. PERSONAL BELONGINGS COLLECTED BY FAMILY MEMEBER AND PT ESCORTED OUT VIA WHEELCHAIR. NO DISTRESS NOTED.
[2023-05-18 14:11] LABS: A/G RATIO 0.8 (0.7-1.7); ALBUMIN 2.5 g/dL (2.9-4.4); ALPHA-1-GLOBULIN 0.3 g/dL (0.0-0.4); ALPHA-2-GLOBULIN 0.8 g/dL (0.4-1.0); BETA GLOBULIN 0.9 g/dL (0.7-1.3); GAMMA GLOBULIN 1.2 g/dL (0.4-1.8); GLOBULIN, TOTAL 3.3 g/dL (2.2-3.9); M-SPIKE Not Observed g/dL (Not Observed); PROTEIN, TOTAL, SERUM 5.8 g/dL (6.0-8.5)
== END 2023-05-16 13:15 | disposition home or self-care (01) | DRG 683 ==
LOC: ER 10:15 → MEDS 16:25
PROVIDERS: Internal Medicine; Physician Assistant; ADMIT Internal Medicine
DX: N17.9 Acute kidney failure, unspecified (principal); E87.20 Acidosis, unspecified; I50.22 Chronic systolic (congestive) heart failure; I95.9 Hypotension, unspecified; Z66 Do not resuscitate; E86.0 Dehydration; D45 Polycythemia vera; J44.9 Chronic obstructive pulmonary disease, unspecified; E78.5 Hyperlipidemia, unspecified; N18.30 Chronic kidney disease, stage 3 unspecified; I25.10 Atherosclerotic heart disease of native coronary artery without angina pectoris; M19.90 Unspecified osteoarthritis, unspecified site; E11.51 Type 2 diabetes mellitus with diabetic peripheral angiopathy without gangrene; R33.9 Retention of urine, unspecified; N30.90 Cystitis, unspecified without hematuria; B96.20 Unspecified Escherichia coli [E. coli] as the cause of diseases classified elsewhere; I25.5 Ischemic cardiomyopathy; E11.22 Type 2 diabetes mellitus with diabetic chronic kidney disease; Z88.8 Allergy status to other drugs, medicaments and biological substances; Z79.899 Other long term (current) drug therapy; Z79.84 Long term (current) use of oral hypoglycemic drugs; Z79.4 Long term (current) use of insulin; Z79.01 Long term (current) use of anticoagulants; Z85.42 Personal history of malignant neoplasm of other parts of uterus; Z98.890 Other specified postprocedural states; Z90.710 Acquired absence of both cervix and uterus; Z87.891 Personal history of nicotine dependence; Z95.820 Peripheral vascular angioplasty status with implants and grafts
CPT/HCPCS: 36415; 76770; 80048; 80053; 81001; 82803; 82947; 83605; 83735; 84165; 84439; 84443; 84550; 85025; 87077; 87086; 87186; 94760; 96360; 99285-25; A9270; J0696; J1650; J1815; J7030

== ENCOUNTER 2023-06-03 21:57 | Emergency (ER) | payer OTHER ==
[~2023-06-03] VITALS: Ht 170.2 cm; Wt 66.7 kg
[~2023-06-03 21:57] MED LIST changes: +AMLO5 PO; +CARVEDILOL6.25 MG PO; +JARDIANCE25 MG PO; +PLAVIX75 MG PO; +ROSUVASTATIN CA40 MG PO; +SEMGLEE (Y100 UNIT/2 SC; +SPIRONOLACTONE25 MG PO
[2023-06-03 22:28] LABS: BASOPHILS ABSOLUTE AUTO 0.08 K/mm3 (0.00-0.23); BASOPHILS PERCENT AUTO 1 % (0-2); EOSINOPHILS ABSOLUTE AUTO 0.17 K/mm3 (0.00-0.68); EOSINOPHILS PERCENT AUTO 2 % (0-6); Hematocrit 52.3 % (33.0-51.0); Hemoglobin 16.6 g/dL (11.5-16.0); IMMATURE GRAN ABSOLUTE AUTO 0.03 K/mm3 (0.00-0.10); IMMATURE GRAN PERCENT AUTO 0 % (0-1); LYMPHOCYTES ABSOLUTE AUTO 1.83 K/mm3 (0.84-5.20); LYMPHOCYTES PERCENT AUTO 18 % (21-46); MONOCYTES ABSOLUTE AUTO 0.58 K/mm3 (0.16-1.47); MONOCYTES PERCENT AUTO 6 % (4-13); Mean Corpuscular HGB 25.9 pg (26.0-34.0); Mean Corpuscular HGB Conc 31.7 g/dL (31.5-36.5); Mean Corpuscular Volume 82 fL (80-100); NEUTROPHILS ABSOLUTE AUTO 7.48 K/mm3 (1.96-9.15); NEUTROPHILS PERCENT AUTO 74 % (41-73); Platelet Count 155 K/mm3 (150-400); RDW Coefficient Variation 21.4 % (11.7-14.2); RDW Standard Deviation 60.2 fL (35.1-46.3); White Blood Cell Count 10.17 K/mm3 (4.00-11.30)
[2023-06-03 22:31] LABS: Mean Platelet Volume 10.8 fL (9.1-12.4)
[2023-06-03 22:44] LABS: Albumin, Blood 3.1 g/dL (3.4-5.0); Albumin/Globulin Ratio 0.8 (0.8-1.8); Bilirubin, Total 0.5 mg/dL (0.1-1.0); Bun/Creatinine Ratio 21.5 (12.0-20.0); Calcium, Blood 9.3 mg/dL (8.5-10.1); Creatinine, Blood 1.72 mg/dL (0.40-1.00); Globulin, Blood 4.1 g/dL (2.2-4.0); Potassium, Blood 4.5 mmol/L (3.5-5.5); Total Protein, Blood 7.2 g/dL (6.4-8.2)
[2023-06-04 00:42] VITALS: BP 144/82
== END 2023-06-04 03:21 | disposition home or self-care (01) ==
LOC: ER 21:57
PROVIDERS: Emergency Medicine
DX: E11.65 Type 2 diabetes mellitus with hyperglycemia (principal); E11.22 Type 2 diabetes mellitus with diabetic chronic kidney disease; E11.51 Type 2 diabetes mellitus with diabetic peripheral angiopathy without gangrene; N18.9 Chronic kidney disease, unspecified; D45 Polycythemia vera; I50.9 Heart failure, unspecified; I25.10 Atherosclerotic heart disease of native coronary artery without angina pectoris; I25.5 Ischemic cardiomyopathy; F17.290 Nicotine dependence, other tobacco product, uncomplicated; Z88.8 Allergy status to other drugs, medicaments and biological substances; Z79.4 Long term (current) use of insulin; Z79.84 Long term (current) use of oral hypoglycemic drugs; Z79.02 Long term (current) use of antithrombotics/antiplatelets; Z79.899 Other long term (current) drug therapy
CPT/HCPCS: 80053; 82010; 82947; 85025; 99284; J1815

== ENCOUNTER 2023-06-06 22:46 | Emergency (ER) | payer OTHER ==
[~2023-06-06] VITALS: Ht 172.7 cm; Wt 66.7 kg
[2023-06-07 00:09] LABS: Appearance, Urine Clear (Clear); Bilirubin, Urine Neg (Neg); Blood, Urine Neg (Neg); Glucose Qualitative, Urine 4+ (Neg); Ketones, Urine Neg (Neg); Leukocyte Esterase, Urine Neg (Neg); Nitrite, Urine Neg (Neg); Protein, Urine Neg (Neg); Source, Urine Clean Catch; Urobilinogen, Urine NORM (Normal)
[2023-06-07 00:12] LABS: BASOPHILS ABSOLUTE AUTO 0.11 K/mm3 (0.00-0.23); BASOPHILS PERCENT AUTO 1 % (0-2); EOSINOPHILS ABSOLUTE AUTO 0.18 K/mm3 (0.00-0.68); EOSINOPHILS PERCENT AUTO 2 % (0-6); Hematocrit 52.2 % (33.0-51.0); Hemoglobin 16.6 g/dL (11.5-16.0); IMMATURE GRAN ABSOLUTE AUTO 0.05 K/mm3 (0.00-0.10); IMMATURE GRAN PERCENT AUTO 0 % (0-1); LYMPHOCYTES ABSOLUTE AUTO 1.97 K/mm3 (0.84-5.20); LYMPHOCYTES PERCENT AUTO 17 % (21-46); MONOCYTES ABSOLUTE AUTO 0.62 K/mm3 (0.16-1.47); MONOCYTES PERCENT AUTO 5 % (4-13); Mean Corpuscular HGB 26.2 pg (26.0-34.0); Mean Corpuscular HGB Conc 31.8 g/dL (31.5-36.5); Mean Corpuscular Volume 83 fL (80-100); NEUTROPHILS ABSOLUTE AUTO 8.64 K/mm3 (1.96-9.15); NEUTROPHILS PERCENT AUTO 75 % (41-73); Platelet Count 160 K/mm3 (150-400); RDW Standard Deviation 63.4 fL (35.1-46.3); Red Blood Cell Count 6.33 M/mm3 (3.80-5.20); White Blood Cell Count 11.57 K/mm3 (4.00-11.30)
[2023-06-07 00:15] LABS: Mean Platelet Volume 10.6 fL (9.1-12.4)
[2023-06-07 00:15] LABS: Color, Urine Pale Yellow (P-Yellow)
[2023-06-07 00:24] LABS: Albumin, Blood 3.3 g/dL (3.4-5.0); Albumin/Globulin Ratio 0.8 (0.8-1.8); Bilirubin, Total 0.6 mg/dL (0.1-1.0); Bun/Creatinine Ratio 25.9 (12.0-20.0); Calcium, Blood 9.1 mg/dL (8.5-10.1); Creatinine, Blood 1.43 mg/dL (0.40-1.00); Globulin, Blood 4.4 g/dL (2.2-4.0); Potassium, Blood 5.1 mmol/L (3.5-5.5); Total Protein, Blood 7.7 g/dL (6.4-8.2)
[2023-06-07 00:30] VITALS: BP 133/70
[2023-06-07] MEDS ORDERED: Hydroxyurea500 MG PO (00:38)
[2023-06-07] MEDS ORDERED: ENTRESTO 24 MG1 EAC3 PO (00:51)
[2023-06-07] MEDS ORDERED: GLIP10ER PO (00:52)
== END 2023-06-07 03:59 | disposition home or self-care (01) ==
LOC: ER 22:46
PROVIDERS: Emergency Medicine
DX: E11.65 Type 2 diabetes mellitus with hyperglycemia (principal); E86.0 Dehydration; I50.9 Heart failure, unspecified; I25.10 Atherosclerotic heart disease of native coronary artery without angina pectoris; I73.9 Peripheral vascular disease, unspecified; I25.5 Ischemic cardiomyopathy; M19.90 Unspecified osteoarthritis, unspecified site; F17.290 Nicotine dependence, other tobacco product, uncomplicated; Z79.4 Long term (current) use of insulin; Z79.84 Long term (current) use of oral hypoglycemic drugs; Z79.02 Long term (current) use of antithrombotics/antiplatelets; Z79.899 Other long term (current) drug therapy; Z88.8 Allergy status to other drugs, medicaments and biological substances
CPT/HCPCS: 80053; 81003; 82947; 85025; 99284; J7030

== ENCOUNTER 2024-03-14 23:03 | Emergency (ER) | payer OTHER ==
[~2024-03-14] VITALS: Ht 172.7 cm; Wt 68.5 kg
[~2024-03-14 23:03] MED LIST changes: +Acetaminophen325 M1 PO; +ENTRESTO 24 MG1 EAC3 PO; +GLIP10ER PO; +Hydroxyurea500 MG PO; +OXAYDO5 M1 PO; +VISBIOME 112.51 EACH PO; +XARELTO20 MG PO
[2024-03-15 00:16] LABS: Source, Urine Clean Catch
[2024-03-15 00:41] LABS: Appearance, Urine Bloody (Clear); Bilirubin, Urine Neg (Neg); Blood, Urine 5+ (Neg); Color, Urine Red (P-Yellow); Glucose Qualitative, Urine 4+ (Neg); Ketones, Urine Neg (Neg); Leukocyte Esterase, Urine 3+ (Neg); Nitrite, Urine Neg (Neg); Protein, Urine 4+ (Neg); Urobilinogen, Urine NORM (Normal)
[2024-03-15 00:55] LABS: Bacteria Mod /hpf; Red Blood Cells, Urine TNTC /hpf (0-2); Squamous Epithelial Cells Few /hpf (Few); White Blood Cells, Urine TNTC /hpf (0-5)
[2024-03-15 02:00] VITALS: BP 172/79
[2024-03-15] MEDS ORDERED: Cephalexin Monohydrate 500 MG Cap PO ONE (02:15)
[2024-03-15] MEDS ORDERED: CEPH500 PO (02:15)
== END 2024-03-15 02:24 | disposition home or self-care (01) ==
LOC: ER 23:03
PROVIDERS: Emergency Medicine
DX: N30.90 Cystitis, unspecified without hematuria (principal); E11.9 Type 2 diabetes mellitus without complications; M19.90 Unspecified osteoarthritis, unspecified site; Z87.891 Personal history of nicotine dependence; Z79.02 Long term (current) use of antithrombotics/antiplatelets; Z79.899 Other long term (current) drug therapy
CPT/HCPCS: 81001; 87077; 87086; 87186; 99283; A9270

== ENCOUNTER 2024-03-20 19:36 | Emergency (ER) | payer OTHER ==
[~2024-03-20] VITALS: Ht 170.2 cm; Wt 72.6 kg
[2024-03-20 19:38] VITALS: BP 157/80
[2024-03-20] MEDS ORDERED: Ketorolac Tromethamine 30mg Vial IV ONE (21:00)
[2024-03-20 21:21] LABS: BASOPHILS ABSOLUTE AUTO 0.07 K/mm3 (0.00-0.23); BASOPHILS PERCENT AUTO 1 % (0-2); EOSINOPHILS ABSOLUTE AUTO 0.19 K/mm3 (0.00-0.68); EOSINOPHILS PERCENT AUTO 2 % (0-6); Hematocrit 47.3 % (33.0-51.0); Hemoglobin 15.1 g/dL (11.5-16.0); IMMATURE GRAN ABSOLUTE AUTO 0.03 K/mm3 (0.00-0.10); IMMATURE GRAN PERCENT AUTO 0 % (0-1); LYMPHOCYTES ABSOLUTE AUTO 1.86 K/mm3 (0.84-5.20); LYMPHOCYTES PERCENT AUTO 19 % (21-46); MONOCYTES ABSOLUTE AUTO 0.79 K/mm3 (0.16-1.47); MONOCYTES PERCENT AUTO 8 % (4-13); Mean Corpuscular HGB 33.3 pg (26.0-34.0); Mean Corpuscular HGB Conc 31.9 g/dL (31.5-36.5); Mean Corpuscular Volume 104 fL (80-100); Mean Platelet Volume 10.2 fL (9.1-12.4); NEUTROPHILS ABSOLUTE AUTO 6.76 K/mm3 (1.96-9.15); NEUTROPHILS PERCENT AUTO 70 % (41-73); Platelet Count 233 K/mm3 (150-400); RDW Coefficient Variation 17.1 % (11.7-14.2); RDW Standard Deviation 66.1 fL (35.1-46.3); Red Blood Cell Count 4.53 M/mm3 (3.80-5.20)
[2024-03-20 21:53] LABS: Albumin/Globulin Ratio 0.6 (0.8-1.8); Bilirubin, Total 0.6 mg/dL (0.1-1.0); Bun/Creatinine Ratio 24.8 (12.0-20.0); Calcium, Blood 9.1 mg/dL (8.5-10.1); Creatinine, Blood 2.26 mg/dL (0.40-1.00); Globulin, Blood 4.8 g/dL (2.2-4.0); Potassium, Blood 5.5 mmol/L (3.5-5.5); Total Protein, Blood 7.8 g/dL (6.4-8.2)
[2024-03-20] MEDS ORDERED: RX Prepack 6 Tabs Oxycodone 5mg UD ONE (22:20)
== END 2024-03-20 22:31 | disposition home or self-care (01) ==
LOC: ER 19:36
PROVIDERS: Physician Assistant
DX: N93.9 Abnormal uterine and vaginal bleeding, unspecified (principal); I50.9 Heart failure, unspecified; I25.10 Atherosclerotic heart disease of native coronary artery without angina pectoris; E11.51 Type 2 diabetes mellitus with diabetic peripheral angiopathy without gangrene; F17.290 Nicotine dependence, other tobacco product, uncomplicated; Z79.84 Long term (current) use of oral hypoglycemic drugs; Z79.4 Long term (current) use of insulin; Z79.899 Other long term (current) drug therapy
CPT/HCPCS: 80053; 85025; 96374; 99284-25; A9270; J1885

== ENCOUNTER → 2024-03-21 | Outpatient (CLI) | payer OTHER ==
[2024-03-21 13:17] LABS: Source, Urine Clean Catch
[2024-03-21 14:06] LABS: Appearance, Urine Turbid (Clear); Bilirubin, Urine Neg (Neg); Blood, Urine 5+ (Neg); Color, Urine Red (P-Yellow); Glucose Qualitative, Urine 2+ (Neg); Ketones, Urine 1+ (Neg); Leukocyte Esterase, Urine 3+ (Neg); Nitrite, Urine Neg (Neg); Protein, Urine 4+ (Neg); Specific Gravity, Urine 1.015 (1.003-1.022); Urobilinogen, Urine NORM (Normal)
[2024-03-21 14:30] LABS: Red Blood Cells, Urine TNTC /hpf (0-2); White Blood Cells, Urine TNTC /hpf (0-5)
[2024-03-21 14:31] LABS: Amorphous Light (0-Heavy); Bacteria Many /hpf; Mucus Light (0-Heavy); Squamous Epithelial Cells Rare /hpf (Few)
== END ==
LOC: LAB 10:37 → LAB SHORT 10:37
PROVIDERS: Obstetrics & Gynecology
DX: N95.0 Postmenopausal bleeding (principal)
CPT/HCPCS: 81001; 87086

== ENCOUNTER 2024-04-25 18:33 | Emergency (ER) | payer OTHER ==
[~2024-04-25] VITALS: Ht 170.2 cm; Wt 67.1 kg
[2024-04-25 19:15] VITALS: BP 114/60
[2024-04-25 19:56] LABS: Source, Urine Clean Catch
[2024-04-25 19:59] LABS: Appearance, Urine Cloudy (Clear); Bilirubin, Urine Neg (Neg); Blood, Urine 5+ (Neg); Glucose Qualitative, Urine 3+ (Neg); Ketones, Urine Neg (Neg); Leukocyte Esterase, Urine 3+ (Neg); Nitrite, Urine Neg (Neg); Protein, Urine 3+ (Neg); Specific Gravity, Urine 1.015 (1.003-1.022); Urobilinogen, Urine NORM (Normal)
[2024-04-25 20:04] LABS: Color, Urine Pale Yellow (P-Yellow)
[2024-04-25 20:36] LABS: Bacteria Many /hpf; Red Blood Cells, Urine TNTC /hpf (0-2); Squamous Epithelial Cells Few /hpf (Few); White Blood Cells, Urine TNTC /hpf (0-5)
[2024-04-25] MEDS ORDERED: Pyridium100 MG PO (20:55)
[2024-04-25] MEDS ORDERED: CEFP200 PO (20:55)
[2024-04-25] MEDS ORDERED: Cefpodoxime Proxetil 200 MG Tab PO ONE (20:55)
== END 2024-04-25 21:11 | disposition home or self-care (01) ==
LOC: ER 18:33
PROVIDERS: Emergency Medicine
DX: N39.0 Urinary tract infection, site not specified (principal); E11.9 Type 2 diabetes mellitus without complications; M19.90 Unspecified osteoarthritis, unspecified site; Z87.891 Personal history of nicotine dependence; Z79.02 Long term (current) use of antithrombotics/antiplatelets; Z79.899 Other long term (current) drug therapy; Z79.4 Long term (current) use of insulin
CPT/HCPCS: 81001; 87086; 99283; A9270

== ENCOUNTER 2024-05-18 15:25 | Inpatient (IN) | payer OTHER ==
[~2024-05-18] VITALS: Ht 170.2 cm; Wt 66.2 kg
[~2024-05-18 15:25] MED LIST changes: +Pyridium100 MG PO; +XARELTO2.5 MG PO; -XARELTO20 MG PO
[2024-05-18 15:58] LABS: BASOPHILS ABSOLUTE AUTO 0.07 K/mm3 (0.00-0.23); BASOPHILS PERCENT AUTO 1 % (0-2); EOSINOPHILS ABSOLUTE AUTO 0.11 K/mm3 (0.00-0.68); EOSINOPHILS PERCENT AUTO 1 % (0-6); Hematocrit 37.5 % (33.0-51.0); Hemoglobin 11.4 g/dL (11.5-16.0); IMMATURE GRAN ABSOLUTE AUTO 0.05 K/mm3 (0.00-0.10); IMMATURE GRAN PERCENT AUTO 0 % (0-1); LYMPHOCYTES ABSOLUTE AUTO 1.38 K/mm3 (0.84-5.20); LYMPHOCYTES PERCENT AUTO 11 % (21-46); MONOCYTES PERCENT AUTO 5 % (4-13); Mean Corpuscular HGB 32.7 pg (26.0-34.0); Mean Corpuscular HGB Conc 30.4 g/dL (31.5-36.5); Mean Corpuscular Volume 107 fL (80-100); Mean Platelet Volume 9.7 fL (9.1-12.4); NEUTROPHILS ABSOLUTE AUTO 10.56 K/mm3 (1.96-9.15); NEUTROPHILS PERCENT AUTO 82 % (41-73); Platelet Count 241 K/mm3 (150-400); RDW Coefficient Variation 15.5 % (11.7-14.2); RDW Standard Deviation 61.8 fL (35.1-46.3); Red Blood Cell Count 3.49 M/mm3 (3.80-5.20); White Blood Cell Count 12.87 K/mm3 (4.00-11.30)
[2024-05-18 16:15] LABS: Albumin/Globulin Ratio 0.7 (0.8-1.8); Bilirubin, Total 0.4 mg/dL (0.1-1.0); Bun/Creatinine Ratio 20.4 (12.0-20.0); Creatinine, Blood 2.4 mg/dL (0.40-1.00); Globulin, Blood 4.6 g/dL (2.2-4.0); Potassium, Blood 5.9 mmol/L (3.5-5.5); Total Protein, Blood 7.6 g/dL (6.4-8.2)
[2024-05-18] MEDS ORDERED: NS 1,000 ML IV SCH (17:30)
[2024-05-18 17:39] LABS: Influenza A, PCR NEGATIVE (NEGATIVE); Influenza B, PCR NEGATIVE (NEGATIVE); Resp Syncytial Virus, PCR NEGATIVE (NEGATIVE); SARS-Cov-2 (COVID-19) PCR, MMC NEGATIVE (NEGATIVE)
[2024-05-18] MEDS ORDERED: FLU VACC TS2024-25(6MOS UP)/PF 45 MCG/0.5 ML SYRINGE IM SCH (18:25)
[2024-05-18] MEDS ORDERED: Ondansetron HCl 2 MG / ML 2ML Vial IV PRN (18:25)
[2024-05-18] MEDS ORDERED: Loperamide HCl 2 MG Cap PO PRN (18:30)
[2024-05-18] MEDS ORDERED: Sodium Bicarb 8.4% Inj 150 MEQ in Dextrose 5% 1,000 ML IV ONE (18:35)
[2024-05-18] MEDS ORDERED: CALCIUM GLUC IN NACL, ISO-OSM 50 ML IV ONE (18:40)
[2024-05-18] MEDS ORDERED: Heparin Sodium,Porcine 5,000 UNIT/0.5 ML SDV SC SCH (21:00)
[2024-05-18 22:22] VITALS: BP 145/77
[2024-05-18 23:08] LABS: Bun/Creatinine Ratio 21.1 (12.0-20.0); Calcium, Blood 8.6 mg/dL (8.5-10.1); Creatinine, Blood 2.42 mg/dL (0.40-1.00); Potassium, Blood 5.2 mmol/L (3.5-5.5)
[2024-05-19 02:17] VITALS: BP 138/65
[2024-05-19 06:38] LABS: BASOPHILS ABSOLUTE AUTO 0.06 K/mm3 (0.00-0.23); BASOPHILS PERCENT AUTO 1 % (0-2); EOSINOPHILS ABSOLUTE AUTO 0.14 K/mm3 (0.00-0.68); EOSINOPHILS PERCENT AUTO 1 % (0-6); Hematocrit 32.2 % (33.0-51.0); Hemoglobin 10.1 g/dL (11.5-16.0); IMMATURE GRAN ABSOLUTE AUTO 0.07 K/mm3 (0.00-0.10); IMMATURE GRAN PERCENT AUTO 1 % (0-1); LYMPHOCYTES ABSOLUTE AUTO 1.32 K/mm3 (0.84-5.20); LYMPHOCYTES PERCENT AUTO 12 % (21-46); MONOCYTES ABSOLUTE AUTO 0.67 K/mm3 (0.16-1.47); MONOCYTES PERCENT AUTO 6 % (4-13); Mean Corpuscular HGB 33.4 pg (26.0-34.0); Mean Corpuscular HGB Conc 31.4 g/dL (31.5-36.5); Mean Corpuscular Volume 107 fL (80-100); Mean Platelet Volume 10.3 fL (9.1-12.4); NEUTROPHILS PERCENT AUTO 80 % (41-73); Platelet Count 209 K/mm3 (150-400); RDW Coefficient Variation 15.2 % (11.7-14.2); RDW Standard Deviation 60.2 fL (35.1-46.3); Red Blood Cell Count 3.02 M/mm3 (3.80-5.20); White Blood Cell Count 10.96 K/mm3 (4.00-11.30)
[2024-05-19 07:00] LABS: Albumin, Blood 2.4 g/dL (3.4-5.0); Albumin/Globulin Ratio 0.6 (0.8-1.8); Bilirubin, Total 0.2 mg/dL (0.1-1.0); Calcium, Blood 8.4 mg/dL (8.5-10.1); Creatinine, Blood 2.27 mg/dL (0.40-1.00); Globulin, Blood 3.9 g/dL (2.2-4.0); Potassium, Blood 4.8 mmol/L (3.5-5.5); Total Protein, Blood 6.3 g/dL (6.4-8.2)
[2024-05-19] MEDS ORDERED: Insulin Human Lispro 100 Units/ML 3ML Syringe SC SCH (07:30)
[2024-05-19] MEDS ORDERED: Carvedilol 3.125 MG Tab PO SCH (08:00)
[2024-05-19 08:05] VITALS: BP 150/60
[2024-05-19] MEDS ORDERED: Clopidogrel Bisulfate 75 MG Tab PO SCH (09:00)
[2024-05-19] MEDS ORDERED: Rivaroxaban 2.5 MG TABLET PO SCH (09:00)
[2024-05-19] MEDS ORDERED: HYDROXYurea 500 MG Cap PO SCH (09:00)
[2024-05-19 13:15] LABS: Source, Urine Straight Cath
[2024-05-19 13:48] LABS: Appearance, Urine Cloudy (Clear); Bilirubin, Urine Neg (Neg); Blood, Urine 5+ (Neg); Glucose Qualitative, Urine 4+ (Neg); Ketones, Urine Neg (Neg); Leukocyte Esterase, Urine 3+ (Neg); Nitrite, Urine Neg (Neg); Protein, Urine 2+ (Neg); Urobilinogen, Urine NORM (Normal)
[2024-05-19] MEDS ORDERED: Sodium Bicarb 8.4% Inj 150 MEQ in Dextrose 5% 1,000 ML IV SCH (14:00)
[2024-05-19 14:46] LABS: Color, Urine Pale Yellow (P-Yellow); White Blood Cells, Urine TNTC /hpf (0-5)
[2024-05-19 14:47] LABS: Bacteria Many /hpf; Squamous Epithelial Cells Rare /hpf (Few)
[2024-05-19 14:48] LABS: Mucus Light (0-Heavy); Yeast/Fungi Urine Many /hpf
[2024-05-19 15:47] VITALS: BP 158/76
--- NOTE | 2024-05-19 16:12 | NUR ---
SHIFT SUMMARY PT AWAKE DURING SHIFT REPORT, RESTING QUIETLY WATCHING TV. PT ADMITTED LAST NIGHT FOR MONSTER. REMAINS IN CONTACT ISO TO R/O C-DIFF. PT HAD NO BM'S SINCE COMING TO HOSPITAL UNTIL THIS AFTERNOON, HAVING SM FORMED STOOL. UNABLE TO OBTAIN SAMPLE D/T CONTAMINATION. PT UP INDEPENDENTLY IN RM AND TO BTHRM. PT SITTING UP TO EOB FOR MEALS. DR MABRY IN TO SEE PT THIS AFTERNOON. NEW ORDERS PLACED. IVF'S INFUSING PER EMAR. UA OBTAINED AND SENT; PT REPORTING HX OF RECURRENT UTI'S. FAMILY IN TO VISIT THIS AFTERNOON. PT NAPPING AT THIS TIME. CALL LT IN REACH. ABLE TO MAKE NEEDS KNOWN. NO C/O TO PRESENT.
[2024-05-19 17:34] VITALS: BP 172/69
[2024-05-19 19:39] VITALS: BP 154/70
[2024-05-19] MEDS ORDERED: Lactobacil 2-S.Thermo-Bifido 1 1 Cap PO SCH (20:00)
[2024-05-19] MEDS ORDERED: NS 250 ML IV PRN (21:00)
[2024-05-19] MEDS ORDERED: CefTRIAXone Sodium 1,000 MG in NS 100 ML IV SCH (21:00)
[2024-05-20 04:12] VITALS: BP 141/67
--- NOTE | 2024-05-20 04:28 | NUR ---
SHIFT SUMMARY: Pt admitted for acute kidney injury and is a full code. Is alert and able to make needs known. ADLs have been independent. On ISO to R/O c-diff. Denies pain or discomfort when asked. Telly reports sinus in the 60s with a 1 deg.
[2024-05-20 06:06] LABS: BASOPHILS ABSOLUTE AUTO 0.08 K/mm3 (0.00-0.23); BASOPHILS PERCENT AUTO 1 % (0-2); EOSINOPHILS ABSOLUTE AUTO 0.15 K/mm3 (0.00-0.68); EOSINOPHILS PERCENT AUTO 2 % (0-6); Hematocrit 31.7 % (33.0-51.0); IMMATURE GRAN ABSOLUTE AUTO 0.05 K/mm3 (0.00-0.10); IMMATURE GRAN PERCENT AUTO 1 % (0-1); LYMPHOCYTES ABSOLUTE AUTO 1.36 K/mm3 (0.84-5.20); LYMPHOCYTES PERCENT AUTO 15 % (21-46); MONOCYTES ABSOLUTE AUTO 0.68 K/mm3 (0.16-1.47); MONOCYTES PERCENT AUTO 8 % (4-13); Mean Corpuscular HGB 33.1 pg (26.0-34.0); Mean Corpuscular HGB Conc 31.5 g/dL (31.5-36.5); Mean Corpuscular Volume 105 fL (80-100); Mean Platelet Volume 10.5 fL (9.1-12.4); NEUTROPHILS ABSOLUTE AUTO 6.62 K/mm3 (1.96-9.15); NEUTROPHILS PERCENT AUTO 74 % (41-73); Platelet Count 218 K/mm3 (150-400); RDW Coefficient Variation 14.8 % (11.7-14.2); RDW Standard Deviation 57.1 fL (35.1-46.3); Red Blood Cell Count 3.02 M/mm3 (3.80-5.20); White Blood Cell Count 8.94 K/mm3 (4.00-11.30)
[2024-05-20 06:32] LABS: Albumin, Blood 2.4 g/dL (3.4-5.0); Albumin/Globulin Ratio 0.6 (0.8-1.8); Bilirubin, Total 0.3 mg/dL (0.1-1.0); Bun/Creatinine Ratio 21.7 (12.0-20.0); Calcium, Blood 8.1 mg/dL (8.5-10.1); Creatinine, Blood 2.17 mg/dL (0.40-1.00); Globulin, Blood 3.9 g/dL (2.2-4.0); Potassium, Blood 4.6 mmol/L (3.5-5.5); Total Protein, Blood 6.3 g/dL (6.4-8.2)
[2024-05-20 07:17] VITALS: BP 137/66
[2024-05-20] MEDS ORDERED: Empagliflozin 10 MG TAB PO SCH (09:00)
[2024-05-20] MEDS ORDERED: Lactated Ringer's 1,000 ML IV SCH (11:35)
[2024-05-20 14:56] VITALS: BP 145/56
--- NOTE | 2024-05-20 15:49 | NUR ---
SHIFT SUMMARY MS RIOJAS C/O FEELING GENERALLY UNWELL TODAY. WHEN ASKED MORE SPECIFIC QUESTIONS SHE DID ADMIT TO SOME NAUSEA, DID NOT WANT ZOFRAN AND SHE SAID SHE FELT UP TO EATING BREAKFAST AND LUNCH JUST FINE. SHE WANTS TO SLEEP MOST OF THE DAY, FEELS COLD THOUGH HAS NOT HAD A FEVER. SHE DENIES PAIN. SHE HAS BEEN UP TO THE BATHROOM INDEPENDENTLY TO VOID, HAS NOT HAD A BOWEL MOVEMENT. ON TELE, NO CALLS FROM BODY CARE MANAGER. MS RIOJAS HAS ASKED APPROPRIATE QUESTIONS ABOUT HER CARE, ORIENTATED X4. IVF LR AT 125CC/HR. BED LOW, CALL LIGHT IN REACH.
[2024-05-20] MEDS ORDERED: AMLODIPINE BESYL5 MG PO (17:50)
[2024-05-20] MEDS ORDERED: SPIRONOLACTONE25 MG PO (17:50)
[2024-05-20 20:31] VITALS: BP 141/59
[2024-05-21 03:40] VITALS: BP 144/82
--- NOTE | 2024-05-21 05:24 | NUR ---
SHIFT SUMMARY PT ALERT AND ORIENTED TIMES 2-3. ON TELE WITH A-FIB. DIABETES MELLITUS 2, WITH HS INSULIN. PT IS INDEPENDENT AND ABLE TO AMBULATE TO USE BATHROOM AND MAKE NEEDS KNOWN. PT IS ON ROOM AIR. BED IN LOW POSITION, CALL LIGHT WITHIN REACH, RAILS TIMES 2.
[2024-05-21 06:24] LABS: BASOPHILS ABSOLUTE AUTO 0.04 K/mm3 (0.00-0.23); BASOPHILS PERCENT AUTO 1 % (0-2); EOSINOPHILS ABSOLUTE AUTO 0.09 K/mm3 (0.00-0.68); EOSINOPHILS PERCENT AUTO 1 % (0-6); Hematocrit 31.8 % (33.0-51.0); Hemoglobin 9.8 g/dL (11.5-16.0); IMMATURE GRAN ABSOLUTE AUTO 0.05 K/mm3 (0.00-0.10); IMMATURE GRAN PERCENT AUTO 1 % (0-1); LYMPHOCYTES ABSOLUTE AUTO 1.31 K/mm3 (0.84-5.20); LYMPHOCYTES PERCENT AUTO 17 % (21-46); MONOCYTES ABSOLUTE AUTO 0.57 K/mm3 (0.16-1.47); MONOCYTES PERCENT AUTO 7 % (4-13); Mean Corpuscular HGB 32.6 pg (26.0-34.0); Mean Corpuscular HGB Conc 30.8 g/dL (31.5-36.5); Mean Corpuscular Volume 106 fL (80-100); Mean Platelet Volume 10.8 fL (9.1-12.4); NEUTROPHILS ABSOLUTE AUTO 5.62 K/mm3 (1.96-9.15); NEUTROPHILS PERCENT AUTO 73 % (41-73); Platelet Count 201 K/mm3 (150-400); RDW Coefficient Variation 14.8 % (11.7-14.2); RDW Standard Deviation 57.5 fL (35.1-46.3); Red Blood Cell Count 3.01 M/mm3 (3.80-5.20); White Blood Cell Count 7.68 K/mm3 (4.00-11.30)
[2024-05-21 06:45] LABS: Bun/Creatinine Ratio 16.9 (12.0-20.0); Creatinine, Blood 2.01 mg/dL (0.40-1.00); Potassium, Blood 4.1 mmol/L (3.5-5.5)
[2024-05-21 07:53] VITALS: BP 150/62
[2024-05-21] MEDS ORDERED: JARDIANCE10 MG PO (12:36)
--- NOTE | 2024-05-21 14:15 | NUR ---
DISCHARGED WITH INSTRUCTIONS, WHEELCHAIR OUT TO [facility] AT 1315. SENT HOME WITH BELONGINGS. NEW RX FAXED TO PHARMACY. AWARE SHE IS TO CALL DR ORELLANA TO SET UP F/U APT
== END 2024-05-21 13:14 | disposition home or self-care (01) | DRG 683 ==
LOC: ER 15:25 → ERHOLD 15:26 → MEDS 15:26 → ENPENDDIS 05-21 10:28 → MEDS 05-21 13:14
PROVIDERS: Emergency Medicine; Family Medicine; Student in an Organized Health Care Education/Training Program; ADMIT Internal Medicine
DX: N17.9 Acute kidney failure, unspecified (principal); E87.21 Acute metabolic acidosis; I50.22 Chronic systolic (congestive) heart failure; I48.20 Chronic atrial fibrillation, unspecified; N39.0 Urinary tract infection, site not specified; E87.5 Hyperkalemia; I25.5 Ischemic cardiomyopathy; I25.10 Atherosclerotic heart disease of native coronary artery without angina pectoris; M19.90 Unspecified osteoarthritis, unspecified site; D45 Polycythemia vera; N18.4 Chronic kidney disease, stage 4 (severe); E11.51 Type 2 diabetes mellitus with diabetic peripheral angiopathy without gangrene; E11.22 Type 2 diabetes mellitus with diabetic chronic kidney disease; E86.0 Dehydration; R19.7 Diarrhea, unspecified; Z79.84 Long term (current) use of oral hypoglycemic drugs; Z79.899 Other long term (current) drug therapy; Z79.02 Long term (current) use of antithrombotics/antiplatelets; Z79.01 Long term (current) use of anticoagulants; F17.290 Nicotine dependence, other tobacco product, uncomplicated; Z85.42 Personal history of malignant neoplasm of other parts of uterus; Z90.710 Acquired absence of both cervix and uterus; Z89.429 Acquired absence of other toe(s), unspecified side; Z98.890 Other specified postprocedural states
CPT/HCPCS: 0241U; 36415; 80048; 80053; 81001; 82947; 83880; 84484; 85025; 87086; 93005; 93010; 96361; 96365; 96366; 96375; 99285-25; A9270; G0378; J0612; J0696; J7030; J7050; J7070; J7120

== ENCOUNTER 2024-06-20 11:55 | Emergency (ER) | payer OTHER ==
[~2024-06-20] VITALS: Ht 170.2 cm; Wt 68.0 kg
[~2024-06-20 11:55] MED LIST changes: +AMLODIPINE BESYL5 MG PO; +JARDIANCE10 MG PO
[2024-06-20 12:29] LABS: BASOPHILS ABSOLUTE AUTO 0.08 K/mm3 (0.00-0.23); BASOPHILS PERCENT AUTO 1 % (0-2); EOSINOPHILS ABSOLUTE AUTO 0.16 K/mm3 (0.00-0.68); EOSINOPHILS PERCENT AUTO 1 % (0-6); Hematocrit 36.6 % (33.0-51.0); Hemoglobin 11.3 g/dL (11.5-16.0); IMMATURE GRAN ABSOLUTE AUTO 0.06 K/mm3 (0.00-0.10); IMMATURE GRAN PERCENT AUTO 1 % (0-1); LYMPHOCYTES ABSOLUTE AUTO 1.63 K/mm3 (0.84-5.20); LYMPHOCYTES PERCENT AUTO 13 % (21-46); MONOCYTES ABSOLUTE AUTO 0.68 K/mm3 (0.16-1.47); MONOCYTES PERCENT AUTO 5 % (4-13); Mean Corpuscular HGB 32.7 pg (26.0-34.0); Mean Corpuscular HGB Conc 30.9 g/dL (31.5-36.5); Mean Corpuscular Volume 106 fL (80-100); Mean Platelet Volume 10.2 fL (9.1-12.4); NEUTROPHILS ABSOLUTE AUTO 10.22 K/mm3 (1.96-9.15); NEUTROPHILS PERCENT AUTO 80 % (41-73); Platelet Count 423 K/mm3 (150-400); RDW Coefficient Variation 15.7 % (11.7-14.2); RDW Standard Deviation 61.1 fL (35.1-46.3); Red Blood Cell Count 3.46 M/mm3 (3.80-5.20); White Blood Cell Count 12.83 K/mm3 (4.00-11.30)
[2024-06-20 12:49] LABS: Albumin, Blood 3.1 g/dL (3.4-5.0); Albumin/Globulin Ratio 0.6 (0.8-1.8); Bilirubin, Total 0.3 mg/dL (0.1-1.0); Bun/Creatinine Ratio 20.2 (12.0-20.0); Calcium, Blood 9.3 mg/dL (8.5-10.1); Creatinine, Blood 2.58 mg/dL (0.40-1.00); Globulin, Blood 5.1 g/dL (2.2-4.0); Potassium, Blood 5.6 mmol/L (3.5-5.5); Total Protein, Blood 8.2 g/dL (6.4-8.2)
[2024-06-20 14:19] VITALS: BP 135/61
[2024-06-20] MEDS ORDERED: Sodium Zirconium Cyclosilicate 10 GM Packet PO ONE (14:25)
[2024-06-20] MEDS ORDERED: LOKELMA10 GM PO (14:35)
[2024-06-20] MEDS ORDERED: Cephalexin Monohydrate 500 MG Cap PO ONE (14:35)
[2024-06-20] MEDS ORDERED: CEPH500 PO (14:35)
== END 2024-06-20 15:21 | disposition home or self-care (01) ==
LOC: ER 11:55
PROVIDERS: Physician Assistant
DX: N93.9 Abnormal uterine and vaginal bleeding, unspecified (principal); E11.22 Type 2 diabetes mellitus with diabetic chronic kidney disease; N18.9 Chronic kidney disease, unspecified; N39.0 Urinary tract infection, site not specified; E87.5 Hyperkalemia; M19.90 Unspecified osteoarthritis, unspecified site; F17.290 Nicotine dependence, other tobacco product, uncomplicated; Z79.4 Long term (current) use of insulin; Z79.02 Long term (current) use of antithrombotics/antiplatelets; Z79.899 Other long term (current) drug therapy
CPT/HCPCS: 76830; 80053; 85025; 99284-25; A9270

== ENCOUNTER → 2024-07-01 | Outpatient (CLI) | payer OTHER ==
[~2024-07-01] MED LIST changes: +LOKELMA10 GM PO
[2024-07-01 14:26] LABS: Source, Urine Clean Catch
[2024-07-01 15:55] LABS: Appearance, Urine Cloudy (Clear); Bilirubin, Urine Neg (Neg); Blood, Urine 5+ (Neg); Glucose Qualitative, Urine 3+ (Neg); Ketones, Urine Neg (Neg); Leukocyte Esterase, Urine 3+ (Neg); Nitrite, Urine Neg (Neg); Protein, Urine 2+ (Neg); Specific Gravity, Urine 1.015 (1.003-1.022); Urobilinogen, Urine NORM (Normal)
[2024-07-01 16:10] LABS: Color, Urine Pale Yellow (P-Yellow)
[2024-07-01 16:11] LABS: Bacteria Mod /hpf; Squamous Epithelial Cells Few /hpf (Few); White Blood Cells, Urine 25-50 /hpf (0-5); Yeast/Fungi Urine Many /hpf
== END | disposition home or self-care (01) ==
LOC: LAB 14:23 → LAB SHORT 14:23
PROVIDERS: Obstetrics & Gynecology
DX: N39.0 Urinary tract infection, site not specified (principal)
CPT/HCPCS: 81001; 87086